=== PATIENT | male | born 1960 | race Caucasian/White ===

== ENCOUNTER 2017-04-17 13:55 | Inpatient (IN) ==
[2017-04-17 15:03] VITALS: BMI 25.3
--- OUTSIDE RECORDS SUMMARY | 2017-04-17 15:07 | External Medical Summary ---
:1960 Author Organization [facility]. Summary purpose CCDA Sent to [facility] Chief Complaint and Reason for Visit No authorized Reason for Visit (Admitting Diagnosis) is available for this visit. Problem list Condition Status Certainty Chronicity Onset .Abdominal pain Resolved Encounters The following conditions tracked for encounter diagnoses were recorded for this visit: Finding or Diagnosis Status Certainty Chronicity Onset .Abdominal pain Resolved Medications No medications recorded for this patient visit Allergies, adverse reactions, alerts Allergen Category Ingredient Status Reaction Severity Onset ciprofloxacin Drug ciprofloxacin Active No Known Food No Known Food No Known Food Active Allergy Allergy Allergy Immunizations No immunizations recorded for this patient visit Relevant diagnostic tests and/or laboratory data RESULTS 12-14-036820:02:58 Discharge Summary improving, HOme on protonix, prn Bells, f/u next week CBC [id number]:40:00 Result Normal Range Units WBC H 14.71 5.8-10.8 x103/mm3 Neutrophil % H 77.0 50-70 % Lymph % L 12.2 20-50 % [place] % H 9.9 1.0-9.0 % Eosinophil % 0.5 0-4 % Basophil % 0.4 0-2 % Neutrophil # H 11.33 3.0-7.0 x103/mm3 Lymph # 1.79 1.0-4.0 x103/mm3 [place] # H 1.46 0.0-0.8 x103/mm3 Eosinophil # 0.07 0-0.5 x103/mm3 Basophil # 0.06 0-0.2 x103/mm3 RBC 5.63 4.60-6.20 x103/mm3 HGB 16.6 14.0-18.0 g/dl HCT 48.7 42.0-52.0 % MCV 86.5 80-94 FL MCH 29.5 27.0-31.0 pg MCHC 34.1 32.0-36.0 g/dl RDW 13.5 12-15 % Platelet 303 150-400 x103/mm3 MPV H 10.3 6.0-10.0 FL Chemistry Group [id number] Result Normal Range Units Sodium 141 134-145 mmol/L Potassium L 3.4 3.6-5.0 mmol/L Chloride L 95 98-107 mmol/L CO2 30 22-30 mmol/L Glucose H 120 75-110 mg/dl BUN 17 9-20 mg/dl Creatinine .86 0.8-1.7 mg/dl Total Protein 7.9 6.3-8.2 g/dl Albumin 4.3 3.5-5.0 g/dl Calcium 9.1 8.4-10.2 mg/dl Alk Phos 58 38-126 U/L AST 33 14-36 U/L ALT 38 11-66 U/L T Bili 1.2 0.2-1.3 mg/dl A/G Ratio 1.2 Ratio Special Chemistry Group [id number] Result Normal Range Units Troponin I < 0.06 ng/ml NEGATIVE - 0.06-0.30 ng/ml INCONCLUSIVE - 0.31-0.64 ng/ml; Suggest Repeating in 2-4 hours POSITIVE - >0.64 ng/ml; Probable AMI [id number]:15:00 Result Normal Range Units Troponin I < 0.06 ng/ml NEGATIVE - 0.06-0.30 ng/ml INCONCLUSIVE - 0.31-0.64 ng/ml; Suggest Repeating in 2-4 hours POSITIVE - >0.64 ng/ml; Probable AMI [id number]:40:00 Result Normal Range Units Troponin I < 0.06 ng/ml NEGATIVE - 0.06-0.30 ng/ml INCONCLUSIVE - 0.31-0.64 ng/ml; Suggest Repeating in 2-4 hours POSITIVE - >0.64 ng/ml; Probable AMI History of procedures Procedure Code Code Type Description Date Performed Performing Physician 97721 CPT-4 EMERGENCY DEPT VISIT 09-14-2015 UMANG OCONNOR 49160 CPT-4 THER/PROPH/DIAG INJ, IV 09-14-2015 UMANG OCONNOR PUSH J2780 CPT-4 RANITIDINE HCL 25 MQ 09-15-2015 ALICIA ROWAN INJ J7050 CPT-4 NS SOLUTION 250 CC 09-15-2015 ALICIA ROWAN INFUSION J2780 CPT-4 RANITIDINE HCL 25 MQ 09-15-2015 ALICIA MELENDREZ [place] INJ J7050 CPT-4 NS SOLUTION 250 CC 09-15-2015 ALICIA MELENDREZ [place] INFUSION J2270 CPT-4 MORPHINE 09-15-2015 ALICIA MELENDREZ [place] J2270 CPT-4 MORPHINE 09-15-2015 ALICIA BASSLODante [place] J2270 CPT-4 MORPHINE 09-15-2015 ALICIA MELENDREZ [place] J2270 CPT-4 MORPHINE 09-15-2015 ALICIA MELENDREZ [place] 39050 CPT-4 ASSAY OF TROPONIN, 09-14-2015 UMANG OCONNOR QUANT 91594 CPT-4 COMPLETE CBC, 09-14-2015 UMANG OCONNOR AUTOMATED 61954 CPT-4 COMPREHEN METABOLIC 09-14-2015 UMANG OCONNOR PANEL 28707 CPT-4 CHEST X-RAY 09-14-2015 UMANG OCONNOR 97882 CPT-4 ELECTROCARDIOGRAM, 09-14-2015 UMANG OCONNOR TRACING 52041 CPT-4 ELECTROCARDIOGRAM, 09-14-2015 UMANG OCONNOR TRACING 78984 CPT-4 ASSAY OF TROPONIN, 09-14-2015 UMANG OCONNOR QUANT 48247 CPT-4 ASSAY OF TROPONIN, 09-15-2015 UMANG OCONNOR QUANT 90884 CPT-4 ELECTROCARDIOGRAM, 09-15-2015 UMANG OCONNOR TRACING 09230 CPT-4 OBSERVATION CARE 09-14-2015 UMANG OCONNOR 30548 CPT-4 OBSERVATION CARE 09-15-2015 UMANG OCONNOR 91447 CPT-4 THER/PROPH/DIAG IV INF, 09-14-2015 UMANG OCONNOR INIT 56113 CPT-4 THER/PROPH/DIAG IV INF 09-15-2015 UMANG OCONNOR ADDON 22486 CPT-4 TX/PRO/DX INJ NEW DRUG 09-14-2015 UMANG VILLANUEVAON 55667 CPT-4 TX/PRO/DX INJ NEW DRUG 09-14-2015 UMANG CLAYTONON 17376 CPT-4 TX/PRO/DX INJ NEW DRUG 09-14-2015 UMANG VILLANUEVAON 51336 CPT-4 TX/PRO/DX INJ NEW DRUG 09-14-2015 UMANG VILLANUEVAON 01673 CPT-4 TX/PRO/DX INJ NEW DRUG 09-14-2015 UMANG VILLANUEVAON 52176 CPT-4 TX/PRO/DX INJ NEW DRUG 09-15-2015 UMANG RATZLAFF TELEHEALTH COORDINATOR 63985 CPT-4 TX/PRO/DX INJ NEW DRUG 09-15-2015 UMANG RATZLAFF TELEHEALTH COORDINATOR 31101 CPT-4 TX/PRO/DX INJ NEW DRUG 09-15-2015 UMANG RATZLAFF TELEHEALTH COORDINATOR 55049 CPT-4 TX/PRO/DX INJ NEW DRUG 09-15-2015 UMANG CASASZLKELLEE TELEHEALTH COORDINATOR 09026 CPT-4 HYDRATE IV INFUSION, 09-14-2015 UMANG RATZLAFF ADD-ON 79258 CPT-4 HYDRATE IV INFUSION, 09-15-2015 UMANG RATZLAFF ADD-ON Functional status Cognitive Status Finding Observation Time Level of Consciousne Alert :28 Oriented to Person Yes :[address] Yes :28 Oriented to Time Yes :28 Eyes - VELMA Yes [id number]:30 Vital signs Type Value Date Respirations 24 :09 Pulse 88 :09 O2 Saturation 94% [id number]:09 Systolic Blood Press 136mm/HG :09 Diastolic Blood Pres 94mm/HG :09 Temperature (Fahr) 98.2Degrees :09 Height 73in :00 Weight 191.8LB :00 Social history Type Value Smoking Status FORMER SMOKER Treatment Plan No treatment plan text is available for this visit. Hospital discharge instructions Diagnosis abdominal pain Diet no restrictions Activity Level no restrictions Personal Items Retur medications returned Follow up with JDR Appointment Date and in 1 week Other Instructions return or call for return, increased, or new symptoms.
--- OUTSIDE RECORDS SUMMARY | 2017-04-17 15:07 | External Medical Summary ---
:1960 Author Organization [facility]. Summary purpose CCDA Sent to [facility] Chief Complaint and Reason for Visit Admit Diagnosis 1 SOA, COUGHING UP BLOODY MUCOUS Problem list No authorized problems tracked for continuity of care are available for this visit. Encounters No authorized problems tracked for encounter diagnoses are available for this visit. Medications No medications recorded for this patient visit Allergies, adverse reactions, alerts Allergen Category Ingredient Status Reaction Severity Onset ciprofloxacin Drug ciprofloxacin Active No Known Food No Known Food No Known Food Active Allergy Allergy Allergy Immunizations No immunizations recorded for this patient visit Relevant diagnostic tests and/or laboratory data RESULTS CBC [id number]:25:00 Result Normal Range Units WBC HC 15.94 5.8-10.8 x103/mm3 Result Amended on 2017-02-13 at 12:56:35. Previous status was FR. REPORTED TO @12:55 BY MKR Neutrophil % H 79.4 50-70 % Result Amended on 2017-02-13 at 12:56:35. Previous status was FR. Lymph % L 9.8 20-50 % Result Amended on 2017-02-13 at 12:56:35. Previous status was FR. [place] % H 9.8 1.0-9.0 % Result Amended on 2017-02-13 at 12:56:35. Previous status was FR. Eosinophil % 0.7 0-4 % Result Amended on 2017-02-13 at 12:56:35. Previous status was FR. Basophil % 0.3 0-2 % Result Amended on 2017-02-13 at 12:56:35. Previous status was FR. Neutrophil # H 12.65 3.0-7.0 x103/mm3 Result Amended on 2017-02-13 at 12:56:35. Previous status was FR. Lymph # 1.57 1.0-4.0 x103/mm3 Result Amended on 2017-02-13 at 12:56:35. Previous status was FR. [place] # H 1.57 0.0-0.8 x103/mm3 Result Amended on 2017-02-13 at 12:56:35. Previous status was FR. Eosinophil # 0.11 0-0.5 x103/mm3 Result Amended on 2017-02-13 at 12:56:35. Previous status was FR. Basophil # 0.04 0-0.2 x103/mm3 Result Amended on 2017-02-13 at 12:56:35. Previous status was FR. RBC 5.27 4.60-6.20 x103/mm3 Result Amended on 2017-02-13 at 12:56:35. Previous status was FR. HGB 14.9 14.0-18.0 g/dl Result Amended on 2017-02-13 at 12:56:35. Previous status was FR. HCT 45.8 42.0-52.0 % Result Amended on 2017-02-13 at 12:56:35. Previous status was FR. MCV 86.9 80-94 FL Result Amended on 2017-02-13 at 12:56:35. Previous status was FR. MCH 28.3 27.0-31.0 pg Result Amended on 2017-02-13 at 12:56:35. Previous status was FR. MCHC 32.5 32.0-36.0 g/dl Result Amended on 2017-02-13 at 12:56:35. Previous status was FR. RDW 14.2 12-15 % Result Amended on 2017-02-13 at 12:56:35. Previous status was FR. Platelet 271 150-400 x103/mm3 Result Amended on 2017-02-13 at 12:56:35. Previous status was FR. MPV H 10.3 6.0-10.0 FL Result Amended on 2017-02-13 at 12:56:35. Previous status was FR. Chemistry Group [id number]:00 Result Normal Range Units Sodium 141 134-145 mmol/L Potassium 4.3 3.6-5.0 mmol/L Chloride 101 98-107 mmol/L CO2 30 22-30 mmol/L Glucose 98 75-110 mg/dl BUN 11 9-20 mg/dl Creatinine .80 0.8-1.7 mg/dl eGFR 100 ml/min. Calcium 9.6 8.4-10.2 mg/dl History of procedures No procedures recorded for this patient visit. Functional status Cognitive Status Finding Observation Time Level of Consciousne Alert :50 Oriented to Person Yes :[address] Yes :50 Oriented to Time Yes :50 Vital signs Type Value Date Respirations 18 :00 Pulse 88 :00 O2 Saturation 95% :00 Systolic Blood Press 161mm/HG :00 Diastolic Blood Pres 121mm/HG :00 Temperature (Fahr) 98.7Degrees :51 Social history Type Value Smoking Status FORMER SMOKER Treatment Plan No treatment plan text is available for this visit. Hospital discharge instructions No discharge instruction text is available for this visit.
[2017-04-17] MEDS ORDERED: SALINE FLUSH 10ml SYRINGE ONE (16:07)
[2017-04-17] MEDS ORDERED: NS 100 ML ONE (16:07)
[2017-04-17] MEDS ORDERED: IOHEXOL 300mg/ml 100ml INJECTION ONE (16:07)
[2017-04-17] MEDS: PANTOPRAZOLE 40 MG INJECTION IVP SCH (16:08)
[2017-04-17] MEDS: 1/2 NS with KCL 20mEq 1,000 ML IV SCH (16:10)
[2017-04-17] MEDS: PIPERACILLIN/TAZOBACTAM 3.375 GM in NS 100 ML IV SCH ×2 (16:13→21:54)
[2017-04-17] MEDS: HYDROMORPHONE 2 MG/ML INJECTION IVP PRN ×2 (16:23→22:59)
--- NOTE | 2017-04-17 16:45 | History & Physical Report ---
History of Present Illness Date: 04/17/17 Chief complaint: Abdominal pain HPI: 57 y/o male made direct admit to [facility] secondary to continued ab pain and leukocytosis. Patient report onset of ab pain (LLQ) on Thursday 04/12. Crampy, bloating sensation, worse with positional changes. Nausea , but no spontaneous vomiting - would drink water and then stick finger down throat to vomit so he could get relief. No stool output. Not passing much flatus. Use old Magnolia and Methadone he had at home to help his pain, but this only provided temporary relief. Would get relief in pain from sitting in a warm tub. Oral drive decreased; not hungry and only eating small amounts of soups/ liquids. His dog also became very ill and lethargic-when took dog into vet, his dog needed to be put down. This has been very traumatic for patient. Was seen in local ED yesterday. WBC elevated to 13.2. Blood in urine. Placed in OBS and stared on fluid, Bactrim and pain medications. Pain continued overnight. WBC with increase this am to 16.3. Not able to do CT there this weekend and transfer to [facility] for further care and evaluation. Review of Systems Comprehensive ROS: completed and no additional positive findings except those as stated - Constitutional Constitutional: Present: anorexia - EENMT Mouth/Throat: Present: scratchy throat (From vomiting) - Cardiovascular Cardiovascular: Absent: chest pain, palpitations - Gastrointestinal Gastrointestinal: Present: as per HPI, constipation, nausea. Absent: diarrhea, hematochezia - Genitourinary Genitourinary: Absent: difficulty urinating, urinary frequency, urinary urgency - Musculoskeletal Musculoskeletal: Present: myalgias - Integumentary/Breasts Integumentary: Absent: pruritus, rash - Neurological Neurological: Absent: focal weakness, loss of vision, memory loss - Psychiatric Psychiatric: Present: other (Very emotionally distraught at loss of his dog) - Allergic/Immunologic Allergic/Immunologic: Absent: tongue swelling, throat swelling, itchy eyes PFSH Patient Stated Medical History Cataracts Yes: LEFT EYE Angina Yes Hypertension Yes Chronic Obstructive Pulmonary Yes: EMPHYSEMA Disease (COPD) Pneumonia Yes Other GI Yes: GASTRITIS Hx Kidney Stones Yes Other Behavioral Health Yes: [facility] - Social History Smoking status: Former smoker Substance use type: marijuana Housing: house Household members: none (Just lost dog) Social history: Dr Handy his PCP. Medications Home Medications Medication Instructions Recorded Confirmed Type Ipratropium/Albuterol Sulfate 2 puff INH QID #0 05/18/10 History (Combivent Inhaler) hydroCHLOROthiazide 25 mg PO DAILY #0 05/18/10 History [Hydrochlorothiazide] Budesonide/Formoterol Fumarate 60 puff ORAL INH DAILY #0 03/19/13 History (Symbicort 80/4.5) Chlorzoxazone [Parafon Forte] 500 mg PO BID #0 03/19/13 History Celecoxib 100 mg PO DAILY #0 10/10/14 History Dicyclomine HCl 10 mg PO Q6H PRN #0 10/10/14 History Montelukast Sodium 10 mg PO HS #0 tab 10/10/14 History Tramadol HCl 50 mg PO Q6H PRN #0 tab 10/10/14 History Allergies Allergy/AdvReac Type Severity Reaction Status Date / Time ciprofloxacin Allergy Mild ITCH Verified 10/10/14 14:56 ciprofloxacin HCl Allergy Mild ITCH Uncoded 10/10/14 14:56 Exam Vital Signs: Temperature 97.6 F 04/17/17 15:01 Pulse Rate 82 04/17/17 15:01 Respiratory Rate 20 04/17/17 15:01 Blood Pressure 147/85 H 04/17/17 15:01 Pulse Oximetry 93 04/17/17 15:01 Height/Weight/BMI: Height 1.85 m Weight 87.2 kg Body Mass Index 25.3 - Constitutional Present: mild distress, well nourished, well developed, cooperative - Routine HEENT Exam Head: Present: normocephalic, atraumatic Eye: Present: EOMI, PERRL ENT: Present: mucous membranes dry - Routine Neck Exam Present: supple, trachea midline - Routine Respiratory Exam Present: decreased breath sounds. Absent: respiratory distress, rhonchi, wheezes, crackles - Routine Cardiovascular Exam Present: RRR, no murmur - Routine Abdominal Exam Present: soft, tenderness (Mild diffuse ). Absent: normoactive bowel sounds ( Decreased ), non distended, guarding, firm, rigid - Routine Extremities Exam Present: no edema, pulses intact. Absent: cyanosis, clubbing - Routine Skin Exam Present: intact, dry, warm - Routine Neurological Exam Present: alert, oriented X3, CN II-XII intact, moving all extremities, vision grossly intact, hearing grossly intact. Absent: motor deficit - Routine Psychiatric Exam Present: normal affect, normal thought process, cooperative. Absent: anxious, agitated Results - Labs CBC & Chem 7: 04/17/17 15:18 04/17/17 15:18 Microbiology Results: Microbiology 04/17/17 15:26 Peripheral/Iv Start Blood Culture - Preliminary Culture Initiated - Results Pending 04/17/17 15:18 Peripheral/Iv Start Blood Culture - Preliminary Culture Initiated - Results Pending Assessment and Plan (1) Abdominal pain Current visit: Yes Status: Acute (2) Leukocytosis Current visit: Yes Status: Acute DVT Prophylaxis: SCD's GI Prophylaxis: Protonix Resuscitation Status: Full Code Assessment and Plan: Assessment Abdominal pain Uncertain etiology. Need to exclude acute diverticulitis. Possible kidney stone. With patient's marijuana use, pain could be secondary to chronic use. Leukocytosis Hematuria - exclude kidney stones Constipation Hypokalemia (POA) - also present at prior facility. COPD GERD Hx Kidney stones - follows with Dr JORGE. Hx pulmonary nodule Hx marijuana use Plan Inpatient admission to [facility] for further evaluation and treatment of his abdominal pain and leukocytosis. Anticipate greater than 2 midnights of care needed. Patient not meeting sepsis criterial, nor do I see evidence of acute surgical abdomen. Start Zosyn 3.375 grams IV q 6 hours for antimicrobial coverage of GI pathogens. Obtain CT scan of ab/pelvis with and without IV contrast to help rule of kidney stone and diverticulitis. IVF of 1/2NS with 20mEq KCL at 125cc/hr for hydration. Clear liquid diet. Zofran prn nausea. Dilaudid prn pain. Neb Treatments of DuoNeb QID and q4 prn along with budesonide 0.5mg BID in light of his COPD. IV Protonix daily secondary to GERD. SCD for DVT prevention. Home medications are in process of being reconciled. Monitor lab. Full code as per his requests. Care to return to Dr Handy at time of discharge from [facility]. Hospital Course Summary Disclaimer: The visit summary below is not to be considered part of the above Progress Note. Hospital Course: 04/17/17 Admission Assessment Abdominal pain Uncertain etiology. Need to exclude acute diverticulitis. Possible kidney stone. With patient's marijuana use, pain could be secondary to chronic use. Leukocytosis Hematuria - exclude kidney stones Constipation Hypokalemia (POA) - also present at prior facility. COPD GERD Hx Kidney stones - follows with Dr JORGE. Hx pulmonary nodule Hx marijuana use Plan Inpatient admission to [facility] for further evaluation and treatment of his abdominal pain and leukocytosis. Anticipate greater than 2 midnights of care needed. Patient not meeting sepsis criterial, nor do I see evidence of acute surgical abdomen. Start Zosyn 3.375 grams IV q 6 hours for antimicrobial coverage of GI pathogens. Obtain CT scan of ab/pelvis with and without IV contrast to help rule of kidney stone and diverticulitis. IVF of 1/2NS with 20mEq KCL at 125cc/hr for hydration. Clear liquid diet. Zofran prn nausea. Dilaudid prn pain. Neb Treatments of DuoNeb QID and q4 prn along with budesonide 0.5mg BID in light of his COPD. IV Protonix daily secondary to GERD. SCD for DVT prevention. Home medications are in process of being reconciled. Monitor lab. Full code as per his requests. Care to return to Dr Handy at time of discharge from [facility].
[2017-04-17] MEDS: ALBUTEROL/IPRATROPIUM 2.5mg-0.5mg/3ml NEB AEROSOL SCH (17:01)
[2017-04-17] MEDS: ONDANSETRON 4 MG/2 ML INJECTION IVP PRN (19:53)
[2017-04-17] MEDS ORDERED: HYDRALAZINE 20 MG/ML INJECTION IVP ONE (20:20)
[2017-04-17] MEDS: BUDESONIDE INH.SOLN 0.5mg/2ml NEB AEROSOL SCH (20:36)
[2017-04-17] MEDS: ALBUTEROL/IPRATROPIUM 2.5mg-0.5mg/3ml NEB AEROSOL PRN (20:37)
[2017-04-17] MEDS ORDERED: POLYETHYL GLYCOL 3350 17gm PACKET PO PRN (23:48)
[2017-04-18] MEDS: PIPERACILLIN/TAZOBACTAM 3.375 GM in NS 100 ML IV SCH ×4 (02:53→21:56)
[2017-04-18] MEDS: 1/2 NS with KCL 20mEq 1,000 ML IV SCH ×2 (02:53→14:27)
[2017-04-18] MEDS: ALBUTEROL/IPRATROPIUM 2.5mg-0.5mg/3ml NEB AEROSOL SCH ×4 (06:55→20:13)
[2017-04-18] MEDS: BUDESONIDE INH.SOLN 0.5mg/2ml NEB AEROSOL SCH (06:56)
[2017-04-18] MEDS: PANTOPRAZOLE 40 MG INJECTION IVP SCH (08:54)
--- NOTE | 2017-04-18 09:22 | CT Scan Report ---
EXAM: CT abdomen pelvis wo/w con DATE: 04/17/2017 4:01 PM ENCOUNTER: Initial INDICATION: ? Kidney stone - Also, LLQ pain possible diverticulitis COMPARISON: 10/10/2014, 03/19/2013 TECHNIQUE: CT of the abdomen and pelvis was obtained after administration of 10 mL Omnipaque 300 intravenous contrast. Axial, coronal and sagittal reformatted images were performed. The current CT scan was performed using radiation dose-reduction techniques. FINDINGS: Evaluation limited by suboptimal contrast related to small contrast bolus. Lower Chest: Partially visualized bilateral pulmonary nodules and emphysematous changes, largest within the right lower lobe measuring up to 13 mm, similar to mildly enlarged from the previous examination. The heart is normal in size without pericardial effusion. Abdomen: No intraperitoneal free air. No intra-abdominal free fluid or fluid collections. No lymphadenopathy. Liver: The liver appears normal without focal masses allowing for suboptimal contrast. Gallbladder and biliary: The gallbladder appears normal. No biliary ductal dilatation. Spleen: The spleen appears normal. Pancreas: The pancreas demonstrates homogeneous attenuation. Adrenal glands: The adrenal glands are normal in size and attenuation. Kidneys/ureters: Mild to moderate left hydroureteronephrosis and perinephric stranding secondary to an 8 mm obstructing stone within the distal left ureter. Additional nonobstructing bilateral nephrolithiasis also noted. The kidneys appear otherwise grossly normal allowing for suboptimal contrast. The right ureter is normal in course and caliber. GI tract: The stomach, small bowel, and colon appear grossly normal. The appendix is normal. Vascular structures: The aorta is normal in course and caliber with aortoiliac atherosclerotic calcifications noted. The mesenteric arterial and venous structures appear patent. Pelvis: No pelvic free fluid. No pelvic lymphadenopathy. Bladder: The bladder appears normal. Genital system: The prostate and seminal vesicles appear grossly normal. Skeletal structures and soft tissues: Postoperative changes of the bilateral proximal femurs. Degenerative spondylosis of the visualized spine. Old left inferior rib fractures. IMPRESSION: 1. Mild to moderate left hydroureteronephrosis and left perinephric stranding secondary to an 8 mm obstructing stone within the distal left ureter. 2. Additional nonobstructing bilateral nephrolithiasis. 3. Bilateral lower lobe pulmonary nodules partially visualized, similar to mildly increased in size from a prior CT in September 2014. Dedicated contrast-enhanced chest CT recommended for further evaluation. The above report concurs with the preliminary report provided by [employer] at 5:42 PM. .
[2017-04-18] MEDS: HYDROMORPHONE 2 MG/ML INJECTION IVP PRN ×3 (09:40→22:00)
--- NOTE | 2017-04-18 13:11 | Urology Consult Note ---
Urology HPI - Data of Consult Consult date: 04/18/17 Requesting Physician: Glenny Arguello MD Primary Care Provider: Santos Mclean MD - Consult Narrative Reason for consult: Left ureteral stone History of present illness: 57M who began c/o severe L flank pain + N/V last tuesday. He was admitted to [facility] last night for possible diverticulitis. CT done showed an 8mm L distal ureteral stone + hydronephrosis. No fever or chills. Creat=1. Of note, patient has a h/o ESWL with Dr JORGE in the past. Review of Systems - Constitutional Constitutional: Present: as per HPI - EENT Eyes: Absent: blurry vision, change in vision - Cardiovascular Cardiovascular: Absent: chest pain, palpitations - Respiratory Respiratory: Absent: cough, dyspnea - Gastrointestinal Gastrointestinal: Present: abdominal pain - Genitourinary Genitourinary: Present: flank pain, hematuria - Musculoskeletal Musculoskeletal: Absent: abnormal gait - Neurological Neurological: Absent: confusion, convulsions - Psychiatric Psychiatric: Absent: auditory hallucinations, behavioral changes [facility] Patient Stated Medical History Cataracts Yes: LEFT EYE Angina Yes Hypertension Yes Chronic Obstructive Pulmonary Yes: EMPHYSEMA Disease (COPD) Pneumonia Yes Other GI Yes: GASTRITIS Hx Kidney Stones Yes Other Behavioral Health Yes: [facility] Surgical History: ESWL by Ritesh JORGE - Social History Smoking status: Former smoker Medications Home Medications Medication Instructions Recorded Confirmed Type Ipratropium/Albuterol [Combivent 2 puff INH Q4H PRN #0 05/18/10 04/17/17 History Respimat Inhaler] hydroCHLOROthiazide 25 mg PO DAILY #0 05/18/10 04/17/17 History [Hydrochlorothiazide] Chlorzoxazone [Parafon Forte] 500 mg PO BID #0 03/19/13 History Celecoxib 100 mg PO DAILY #0 10/10/14 04/17/17 History Dicyclomine HCl 10 mg PO Q6H PRN #0 10/10/14 04/17/17 History Montelukast Sodium 10 mg PO HS #0 tab 10/10/14 04/17/17 History Tramadol HCl 50 mg PO Q6H PRN #0 tab 10/10/14 04/17/17 History Albuterol Neb (0.083%) [Proventil 2.5 mg AEROSOL QID PRN 04/17/17 04/17/17 History Neb (0.083%)] Albuterol Sulfate [Proair Hfa] 1 - 2 puff INH Q4H PRN 04/17/17 04/17/17 History Budesonide/Formoterol 80/4.5 2 puff INH BID 04/17/17 04/17/17 History [Symbicort Inhaler] Diclofenac [Voltaren] 1 applic TOP BID 04/17/17 04/17/17 History Docusate Sodium [Colace] 1 cap PO BID 04/17/17 04/17/17 History Fluticasone Hfa [Flovent Hfa 220 2 puff INH BID PRN 04/17/17 04/17/17 History mcg] Hydrocodone/APAP 5/325 [[place] 1 tab PO Q4H PRN 04/17/17 04/17/17 History 5/325] Ibuprofen 800 mg PO Q8H PRN 04/17/17 04/17/17 History Milk of Magnesia [Mom] 30 ml PO DAILY PRN 04/17/17 04/17/17 History Pantoprazole Tab [Protonix Tab] 1 tab PO ACB 04/17/17 04/17/17 History Simvastatin 20 mg PO HS 04/17/17 04/17/17 History Allergies Allergy/AdvReac Type Severity Reaction Status Date / Time ciprofloxacin Allergy Mild ITCH Verified 04/17/17 16:57 ciprofloxacin HCl Allergy Mild ITCH Uncoded 04/17/17 16:57 Urology Results - Labs CBC & Chem 7: 04/18/17 03:45 04/18/17 03:45 Labs: Short CBC 04/17/17 04/18/17 Range/Units 15:18 03:45 WBC 12.9 H 11.4 H (4.5-11.0) T/MM3 Hgb 14.6 13.5 (13.5-17.5) GM/DL Hct 44.2 40.9 L (41-53) % Plt Count 274 246 (130-400) T/MM3 BMP 04/17/17 04/18/17 15:18 03:45 Sodium 144 140 Potassium 3.4 L 3.1 L Chloride 98 100 Carbon Dioxide 32 H 31 H BUN 11.0 10.0 Creatinine 0.8 1.0 D Glucose 98 86 Calcium 9.5 9.0 Liver Function 04/17/17 Range/Units 15:18 Total Bilirubin 1.20 (0.20-1.30) MG/DL AST 31 (17-59) U/L ALT 30 (21-72) U/L Alkaline Phosphatase 82 (38-126) U/L Albumin 4.5 (3.5-5.0) G/DL Urine 04/17/17 Range/Units 14:15 Urine Color Yellow (YELLOW) Urine Clarity Cloudy Urine pH 7.0 (5.0-8.0) Ur Specific [place] 1.010 L (1.015-1.025) Urine Protein Negative (NEGATIVE) Urine Glucose (UA) Negative (NEGATIVE) Urology Exam Vital signs: Temperature 98.3 F 04/18/17 12:25 Pulse Rate 79 04/18/17 12:25 Respiratory Rate 14 04/18/17 12:25 Blood Pressure 146/89 H 04/18/17 12:25 Pulse Oximetry 96 04/18/17 12:25 - Constitutional no acute distress - HEENT Exam Head: Present: normocephalic Eye: Present: EOMI - Chest/Breast/Axilla Exam Chest wall: Absent: tenderness - Respiratory Exam Absent: accessory muscle use, dyspnea, respiratory distress - Cardiovascular Exam Present: RRR - Abdominal/Groin Exam Present: soft, tenderness (llq) - Exam Penile: Present: circumcision. Absent: swelling, erythema Scrotal: Absent: swelling, tenderness - Psychiatric Exam Present: normal affect, normal thought process Assessment and Plan 8mm L ureteral stone Plan: d/w pt management options including MET vs URS. I discussed the risks of URS including infection, bleeding and ureteral injury . Patient elects for URS Will plan for L URS + LL + Stent on tuesday Thank you for the consult. Call for questions/concerns Sepsis Assessment - Evaluation Sepsis screening result: No Definite Risk
--- NOTE | 2017-04-18 14:14 | Cardiology Consult Note ---
History of Present Illness Consult date: 04/18/17 <Мария Curry - 04/18/17 14:25> Requesting physician: Glenny Arguello <Мария Curry - 04/18/17 14:25> Consult reason: pre-op evaluation <Мария Curry - 04/18/17 14:25> Chief complaint: abdominal pain <Мария Curry - 04/18/17 14:25> History of present illness: Fly is a 57 year old male who was admitted to [facility] [place] another hospital secondary to continued ab pain and leukocytosis. He reports onset of ab pain (LLQ) on Thursday 04/12. Crampy, bloating sensation, worse with positional changes. Nausea, but no spontaneous vomiting - would drink water and then stick finger down throat to vomit so he could get relief. No stool output. Not passing much flatus. Used old [place] and Methadone he had at home to help his pain, but this only provided temporary relief. Would get relief in pain from sitting in a warm tub. Oral drive decreased; not hungry and only eating small amounts of soups/liquids. His dog also became very ill and lethargic-when took dog into vet, his dog needed to be put down. This has been very traumatic for patient. He is seen in his room on Surgical. He is very anxious about kidney stone retrieval procedure and states concern about his heart because his father had Bypass X4 before the age of 60 and of CHF. Patient states he has a history of COPD and when he has chest pain he always considered it to be his lung condition. <Мария Curry - 04/18/17 14:25> Review of Systems - Constitutional Constitutional: Absent: chills, fatigue, fever(s) <Мария Curry - 04/18/17 14:25> - EENMT Eyes: Absent: change in vision <Мария Curry 04/18/17 14:25> Balance: Absent: vertigo <Мария Curry - 04/18/17 14:25> Mouth/Throat: Absent: sore throat <Мария Curry 04/18/17 14:25> - Cardiovascular Cardiovascular: Present: chest pain (at times), dyspnea on exertion. Absent: palpitations, syncope <Мария Curry 04/18/17 14:25> Rhythm: Present: regular rhythm <AntoinetteМария suarez 04/18/17 14:25> Vascular: Absent: pedal edema <AntoinetteМария suarez 04/18/17 14:25> - Respiratory Respiratory: Present: as per HPI, cough (COPD), dyspnea, dyspnea on exertion, chest congestion (COPD) <Antoinette,Amy 04/18/17 14:25> - Gastrointestinal Gastrointestinal: Present: as per HPI, abdominal pain, nausea, vomiting < AntoinetteМария suarez 04/18/17 14:25> - Genitourinary Genitourinary: Present: as per HPI, flank pain, hematuria <Antoinette,Amy 14:25> - Neurological Neurological: Absent: dizziness <AntoinetteМария suarez 04/18/17 14:25> - Endocrine Endocrine: Absent: palpitations <[facility] Hospital[facility] 04/18/17 14:25> [facility] Patient Stated Medical History Cerebrovascular Accident No Paralysis No Seizures No Syncope No Cataracts Yes: LEFT EYE Angina No Cardiac Arrhythmia No Congestive Heart Failure No Coronary Artery Disease No Heart Murmur No Hypertension Yes Hypotension No Myocardial Infarction No Rheumatic Fever No Valvular Heart Disease No Other Cardiology No Asthma No Bronchitis No Chronic Obstructive Pulmonary Yes Disease (COPD) Pneumonia No Pulmonary Edema No Pulmonary Embolism No Sleep Apnea No Tuberculosis No Other Respiratory No Diabetes Mellitus Type 1 No Diabetes Mellitus Type 2 No Cirrhosis No Gastroesophageal Reflux No Disease Gastrointestinal Bleeding No Hepatitis No Hiatal Hernia No Obstructive Bowel No Ulcer No Other GI No Hx Kidney Stones Yes Osteoarthritis No Other Musculoskeletal No Anesthesia Reactions No Blood Transfusions No Chemotherapy No Malignant Hyperthermia No Other No Depression No Other Behavioral Health Yes[facility] Now No <Delroy Person - 04/22/17 13:55> Patient Stated Medical History Cataracts Yes: LEFT EYE Angina Yes Hypertension Yes Chronic Obstructive Pulmonary Yes: EMPHYSEMA Disease (COPD) Pneumonia Yes Other GI Yes: GASTRITIS Hx Kidney Stones Yes Other Behavioral Health Yes: [facility] <Мария Curry 04/18/17 14:25> Surgical History: ESWL by Ritesh JORGE. Left shoulder replacement. pins bilateral hip fractures at age 12 <Мария Curry 04/18/17 14:25> Family History: Father - CAD, CABG, CHF <Мария Curry 04/18/17 14:25> - Social History Smoking status: Former smoker <Мария Curry 04/18/17 14:25> Substance use type: marijuana <Мария Curry 04/18/17 14:25> Substance last used: days (ago) <Мария Curry 04/18/17 14:25> Alcohol intake frequency: does not drink <Мария Curry 04/18/17 14:25> Housing: house <Мария Curry 04/18/17 14:25> Household members: none <Мария Curry 04/18/17 14:25> Current occupational status: disabled <Мария Curry 04/18/17 14:25> Current residence: Apartment/Private Home <Мария Curry 04/18/17 14:25> Medications Home Medications Medication Instructions Recorded Confirmed Type Ipatropium/Albuterol [Combivent 2 puff INH Q4H PRN #0 05/18/10 04/17/17 History Respimat Inhaler] Chlorzoxazone [Parafon Forte] 500 mg PO BID #0 03/19/13 History Celecoxib 100 mg PO DAILY #0 10/10/14 04/17/17 History Dicyclomine HCl 10 mg PO Q6H PRN #0 10/10/14 04/17/17 History Montelukast Sodium 10 mg PO HS #0 tab 10/10/14 04/17/17 History Albuterol Sulfate [Proair Hfa] 1 - 2 puff INH Q4H PRN 04/17/17 04/17/17 History Budesonide/Formoterol 80/4.5 2 puff INH BID 04/17/17 04/17/17 History [Symbicort Inhaler] Diclofenac [Voltaren] 1 applic TOP BID 04/17/17 04/17/17 History Docusate Sodium [Colace] 1 cap PO BID 04/17/17 04/17/17 History Fluticasone HFA [Flovent Hfa 220 2 puff INH BID PRN 04/17/17 04/17/17 History mcg] Hydrocodone/APAP 5/325 [[place] 1 tab PO Q4H PRN 04/17/17 04/17/17 History 5/325] Ibuprofen 800 mg PO Q8H PRN 04/17/17 04/17/17 History Pantoprazole Tab [Protonix Tab] 1 tab PO ACB 04/17/17 04/17/17 History Simvastatin 20 mg PO HS 04/17/17 04/17/17 History <Delroy Person - 04/22/17 13:55> Allergies Allergy/AdvReac Type Severity Reaction Status Date / Time ciprofloxacin Allergy Mild ITCH Verified 04/17/17 16:57 ciprofloxacin HCl Allergy Mild ITCH Uncoded 04/17/17 16:57 <Delryo Person - 04/22/17 13:55> Exam Vital signs: Temperature 97.6 F 04/21/17 16:33 Pulse Rate 88 04/21/17 16:43 Respiratory Rate 18 04/21/17 16:33 Blood Pressure 126/79 04/21/17 16:33 Pulse Oximetry 96 04/21/17 16:33 <Delroy Person - 04/22/17 13:55> Temperature 98.3 F 04/18/17 12:25 Pulse Rate 79 04/18/17 12:25 Respiratory Rate 14 04/18/17 12:25 Blood Pressure 146/89 H 04/18/17 12:25 Pulse Oximetry 96 04/18/17 12:25 <Мария Curry - 04/18/17 14:25> - Constitutional mild distress, well nourished, cooperative <Мария Curry - 04/18/17 14:25> - Routine HEENT Exam Head: Present: normocephalic <Мария Curry - 04/18/17 14:25> ENT: Present: mucous membranes moist <Мария Curry - 04/18/17 14:25> - Routine Neck Exam Absent: JVD, carotid bruit <Мария Curry - 04/18/17 14:25> - Routine Chest/Breast/Axilla Exam Chest wall: Absent: tenderness <Мария Curry - 04/18/17 14:25> Results 04/20/17 04:08 04/21/17 07:38 <Delroy Person - 04/22/17 13:55> Intake and Output 04/21/17 04/22/17 04/22/17 22:59 06:59 14:59 Intake Total 408.333 / 408.333 Balance 408.333 / 408.333 Intake: IV 408.333 / 408.333 1/2 NS with KCL 20mEq 1, 408.333 / 408.333 000 ML @ 100 mls/hr IV . Q10H [facility] Rx#:[id number] <Ayah Personsein - 04/22/17 13:55> Cardiac Enzymes 04/17/17 Range/Units 15:18 AST 31 (17-59) U/L CBC 04/17/17 04/18/17 Range/Units 15:18 03:45 WBC 12.9 H 11.4 H (4.5-11.0) T/MM3 RBC 5.07 4.62 (4.50-5.90) M/MM3 Hgb 14.6 13.5 (13.5-17.5) GM/DL Hct 44.2 40.9 L (41-53) % Plt Count 274 246 (130-400) T/MM3 Neut # 10.7 H 8.1 H (1.8-7.7) T/MM3 Lymph # 1.3 1.7 (1-4.8) T/MM3 [place] # 0.8 1.2 H (0-0.8) T/MM3 Eos # 0.1 0.3 (0-0.5) T/MM3 Baso # 0.0 0.1 (0-0.2) T/MM3 Comprehensive Metabolic Panel 04/17/17 04/18/17 Range/Units 15:18 03:45 Sodium 144 140 (134-144) MEQ/L Potassium 3.4 L 3.1 L (3.6-5) MEQ/L Chloride 98 100 (98-107) MEQ/L Carbon Dioxide 32 H 31 H (22-30) MEQ/L BUN 11.0 10.0 (9-20) MG/DL Creatinine 0.8 1.0 D (0.8-1.5) MG/DL Glucose 98 86 (75-110) MG/DL Calcium 9.5 9.0 (8.4-10.2) MG/DL AST 31 (17-59) U/L ALT 30 (21-72) U/L Alkaline Phosphatase 82 (38-126) U/L Total Protein 8.0 (6.3-8.2) G/DL Albumin 4.5 (3.5-5.0) G/DL Intake and Output 04/17/17 04/18/17 04/18/17 22:59 06:59 14:59 Intake Total 203.333 / 321.324 6603.667 / 1066.667 650 / 650 Output Total 550 / 550 850 / 850 Balance -346.667 / -346.667 216.667 / 216.667 650 / 650 Intake: IV 203.333 / 881.745 3292.667 / 1066.667 650 / 650 1/2 NS with KCL 20mEq 1, 3.333 / 3.333 966.667 / 966.667 550 / 550 000 ML @ 100 mls/hr IV . Q10H [facility] Rx#:[id number] Zosyn 3.375 gm In Normal 200.000 / 200.000 100 / 100 100 / 100 Saline 100 ml @ 200 mls/ hr IV Q6H [facility] Rx#: [id number] Oral 0 / 0 0 / 0 Output: Urine 550 / 550 850 / 850 Other: Urine Appearance Clear Cloudy Urine Color Dark Lisa Tea Colored Tea Colored Urine Odor Normal Stool Characteristics Normal for Patient Stool Color Brown Stool Consistency Soft Formed Size of Bowel Movement Moderate # Voids 1 # Bowel Movements 1 Weight 192 lb 3.889 oz 192 lb 0.362 oz Patient Weight 04/19/17 06:59 Weight 192 lb 0.362 oz <Мария Curry - 04/18/17 14:25> - Imaging and Cardiology Echo: report reviewed <Мария Curry - 04/19/17 09:33> EKG results: image reviewed <Мария Curry - 04/19/17 09:33> Imaging & Cardiology Narrative: Date of Exam: 04/18/17 Type of Exam(s): US echo doppler complete DATE OF PROCEDURE April 18, [address] Justice Dumont This is a two-dimensional echo with spectral Doppler, color-flow and M-mode. It was obtained in a patient with abnormal EKG. Left atrial dimension is normal. Left ventricle end-diastolic dimension is normal. Left ventricle wall thickness is normal. LV systolic function is normal with ejection fraction of 55%. Right atrium is normal. Right ventricle is normal. Aortic root dimension is normal. Mitral, aortic, tricuspid, and pulmonary valves are morphologically normal with trace of mitral and trace of tricuspid regurgitation with normal estimated pulmonary artery systolic pressure of 15. There is no pericardial effusion. IMPRESSION 1. Essentially normal echo with trivial mitral and tricuspid regurgitation. <Мария Curry - 04/19/17 09:33> EKG interpretations - EKG EKG results cardiology: sinus rhythm <Мария Curry - 04/19/17 09:33> - [place], pacemaker, normal Myocardial infarction: inferior [place] (old age indeterminate) <Мария Curry - 04/19/17 09:33> Assessment and Plan - Attestation Attestation Narrative: 04/22/17 13:55 Recommendation After examining the patient I agree with the above assessment. I am involved in the formulation of the patient's plan of care. <Delroy Person - 04/22/17 13:55> - Assessment and Plan (1) Abnormal EKG Status: Acute (2) Renal lithiasis Status: Acute (3) Essential (primary) hypertension Status: Acute <Delroy Person - 04/22/17 13:55> (1) Abnormal EKG Status: Acute EKG is SR, ? IWMI. Has positive family history of heart disease. Plan treadmill stress test in the morning at 0800. (2) Renal lithiasis Status: Acute 8mm Left ureteral stone, with procedure planned for Tuesday. <Мария Curry - 04/19/17 09:30> Hospital Course Summary Disclaimer: The visit summary below is not to be considered part of the above Progress Note. <Delroy Person - 04/22/17 13:55> The visit summary below is not to be considered part of the above Progress Note. <Мария Curry - 04/18/17 14:25> Hospital Course: 04/17/17 Admission Assessment Abdominal pain Uncertain etiology. Need to exclude acute diverticulitis. Possible kidney stone. With patient's marijuana use, pain could be secondary to chronic use. Leukocytosis Hematuria - exclude kidney stones Constipation Hypokalemia (POA) - also present at prior facility. COPD GERD Hx Kidney stones - follows with Dr JORGE. Hx pulmonary nodule Hx marijuana use Plan Inpatient admission to [facility] for further evaluation and treatment of his abdominal pain and leukocytosis. Anticipate greater than 2 midnights of care needed. Patient not meeting sepsis criterial, nor do I see evidence of acute surgical abdomen. Start Zosyn 3.375 grams IV q 6 hours for antimicrobial coverage of GI pathogens. Obtain CT scan of ab/pelvis with and without IV contrast to help rule of kidney stone and diverticulitis. IVF of 1/2NS with 20mEq KCL at 125cc/hr for hydration. Clear liquid diet. Zofran prn nausea. Dilaudid prn pain. Neb Treatments of DuoNeb QID and q4 prn along with budesonide 0.5mg BID in light of his COPD. IV Protonix daily secondary to GERD. SCD for DVT prevention. Home medications are in process of being reconciled. Monitor lab. Full code as per his requests. Care to return to Dr Handy at time of discharge from [facility]. 04/18/17 Cardiology Abnormal EKG is SR, ? IWMI. Has positive family history of heart disease. Plan treadmill stress test in the morning at 0800. Renal lithiasis: 8mm Left ureteral stone, with procedure planned for Tuesday. Thank you for allowing us to participate in this patient's care <Мария Curry - 04/19/17 09:33> Sepsis Assessment - Evaluation Sepsis screening result: No Definite Risk <Мария Curry - 04/18/17 14:25>
[2017-04-18] MEDS: ALBUTEROL ORAL INH SCH ×2 (16:08→19:17)
[2017-04-18] MEDS: IPRATROPIUM ORAL INH SCH ×2 (16:08→19:17)
[2017-04-18] MEDS: HYDROCODONE/APAP 7.5 MG/325 MG TABLET PO PRN (18:08)
[2017-04-18] MEDS ORDERED: LORazepam 1 MG TABLET PO PRN (20:14)
[2017-04-18] MEDS: ONDANSETRON 4 MG/2 ML INJECTION IVP PRN (23:22)
[2017-04-19] MEDS ORDERED: LORazepam 0.5 MG TABLET PO PRN ×3 (00:38→14:46)
[2017-04-19] MEDS: 1/2 NS with KCL 20mEq 1,000 ML IV SCH ×3 (01:38→23:32)
[2017-04-19] MEDS: PIPERACILLIN/TAZOBACTAM 3.375 GM in NS 100 ML IV SCH ×5 (02:59→23:45)
[2017-04-19] MEDS: IPRATROPIUM ORAL INH SCH ×4 (04:10→20:49)
[2017-04-19] MEDS: ALBUTEROL ORAL INH SCH ×4 (04:10→20:49)
[2017-04-19] MEDS: ALBUTEROL/IPRATROPIUM 2.5mg-0.5mg/3ml NEB AEROSOL PRN (04:10)
[2017-04-19] MEDS: POM ALBUTEROL HFA INHALER 8gm ORAL INH PRN (04:33)
[2017-04-19] MEDS ORDERED: SALINE FLUSH 10ml SYRINGE ONE (07:17)
[2017-04-19] MEDS: ALBUTEROL/IPRATROPIUM 2.5mg-0.5mg/3ml NEB AEROSOL SCH ×3 (07:27→15:26)
--- NOTE | 2017-04-19 08:14 | Echocardiogram ---
DATE OF PROCEDURE April 18, [address] Justice Dumont This is a two-dimensional echo with spectral Doppler, color-flow and M-mode. It was obtained in a patient with abnormal EKG. Left atrial dimension is normal. Left ventricle end-diastolic dimension is normal. Left ventricle wall thickness is normal. LV systolic function is normal with ejection fraction of 55%. Right atrium is normal. Right ventricle is normal. Aortic root dimension is normal. Mitral, aortic, tricuspid, and pulmonary valves are morphologically normal with trace of mitral and trace of tricuspid regurgitation with normal estimated pulmonary artery systolic pressure of 15. There is no pericardial effusion. IMPRESSION 1. Essentially normal echo with trivial mitral and tricuspid regurgitation. MTDD
[2017-04-19] MEDS ORDERED: REGADENOSON 0.4 MG/5 ML INJECTION IVP ONE (08:27)
--- NOTE | 2017-04-19 09:36 | Cardiology Progress Note ---
Subjective Principal diagnosis: abnormal EKG <Мария Curry 04/19/17 09:43> Interval history: Fly is seen in stress test this morning in follow up for abnormal EKG. He is unable to tolerate exercise on treadmill and is given Lexiscan instead. He reports SOA and upper left sided abdominal pain. <Мария Curry 04/19/17 09:43> Exam Vital signs: Temperature 97.6 F 04/21/17 16:33 Pulse Rate 88 04/21/17 16:43 Respiratory Rate 18 04/21/17 16:33 Blood Pressure 126/79 04/21/17 16:33 Pulse Oximetry 96 04/21/17 16:33 <Delroy Person - 04/22/17 14:00> Temperature 97.9 F 04/19/17 07:30 Pulse Rate 87 04/19/17 07:30 Respiratory Rate 18 04/19/17 07:30 Blood Pressure 157/87 H 04/19/17 07:30 Pulse Oximetry 98 04/19/17 07:30 <Мария Curry 04/19/17 09:43> - Constitutional moderate distress, cooperative <Мария Curry 04/19/17 09:43> - Routine HEENT Exam Head: Present: normocephalic <Мария Curry 04/19/17 09:43> ENT: Present: mucous membranes moist <Мария Curry 04/19/17 09:43> - Routine Neck Exam Absent: JVD, carotid bruit <Мария Curry 04/19/17 09:43> - Routine Chest/Breast/Axilla Exam Chest wall: Absent: tenderness <Мария Curry 04/19/17 09:43> - Routine Respiratory Exam Present: CTA bilaterally. Absent: rales, wheezes <Мария Curry 04/19/17 09:43> - Routine Cardiovascular Exam Present: no murmur. Absent: JVD <Мария Curry 04/19/17 09:43> - Routine Abdominal Exam Present: soft, normoactive bowel sounds <Мария Curry 04/19/17 09:43> - Routine Extremities Exam Present: no edema <Мария Curry 04/19/17 09:43> - Routine Skin Exam Present: intact, dry, warm <Мария Curry - 04/19/17 09:43> - Routine Neurological Exam Present: alert, oriented X3 <Мария Curry - 04/19/17 09:43> - Routine Psychiatric Exam Present: normal affect, normal thought process <Мария Curry - 04/19/17 09: 43> - Additional findings Additional findings: Laboratory Results - last 24 hr 04/19/17 04/19/17 04:26 04:26 WBC 11.4 H RBC 5.19 Hgb 14.7 Hct 45.9 D MCV 88.4 MCH 28.3 MCHC 32.0 RDW Std Deviation 43.8 Plt Count 293 MPV 10.4 Immature Gran % (Auto) 0.3 Neut % (Auto) 67.9 H Lymph % (Auto) 18.9 L [place] % (Auto) 8.5 Eos % (Auto) 3.9 Baso % (Auto) 0.5 Neut # 7.7 Lymph # 2.1 [place] # 1.0 H Eos # 0.4 Baso # 0.1 Abs Immat Gran (auto) 0.03 Turbidity < 20 Sodium 144 Potassium 3.9 D Chloride 103 Carbon Dioxide 30 Anion Gap 11 BUN 8.0 L Creatinine 0.9 GFR Calculation 88 BUN/Creatinine Ratio 9 Glucose 83 Calculated Osmolality 274 Calcium 9.4 Phosphorus 2.7 Icterus Index < 2 Albumin 4.1 Specimen Hemolysis < 15 Acetaminophen/Hydrocodone Bitart ([place] 7.5/325) 1 tab PO Q4H PRN PRN Reason: Pain Last Admin: 04/18/17 18:08 Dose: 1 tab Albuterol Sulfate (Ventolin Hfa) 2 puff ORAL INH Q4HR PRN Last Admin: 04/19/17 04:33 Dose: 2 puff Albuterol/Ipratropium (Duoneb) 3 ml AEROSOL Q4HR PRN PRN Reason: Shortness of air/wheezing Last Admin: 04/17/17 20:37 Dose: 3 ml Albuterol/Ipratropium (Duoneb) 3 ml AEROSOL RTQID ADRIENNE Last Admin: 04/19/17 07:27 Dose: 3 ml Albuterol/Ipratropium (Combivent Respimat Inhaler) 1 puff ORAL INH RTQID ADRIENNE Last Admin: 04/19/17 04:10 Dose: 1 puff Hydromorphone HCl (Dilaudid) 0.5 mg IVP Q3H PRN PRN Reason: Pain Last Admin: 04/18/17 22:00 Dose: 0.5 mg Piperacillin Sod/Tazobactam (Sod 3.375 gm/ Sodium Chloride) 100 mls @ 200 mls/ hr IV Q6H [facility] Last Infusion: 04/19/17 03:29 Dose: Infused Potassium Chloride/Sodium Chloride (1/2 Ns With Kcl 20meq) 1,000 mls @ 100 mls/ hr IV .Q10H [facility] Last Admin: 04/19/17 01:38 Dose: 100 mls/hr Lorazepam (Ativan) 0.5 mg PO TID PRN Ondansetron HCl (Zofran) 4 mg IVP Q6H PRN PRN Reason: Nausea Last Admin: 04/18/17 23:22 Dose: 4 mg Pantoprazole Sodium (Protonix Iv) 40 mg IVP DAILY [facility] Last Admin: 04/18/17 08:54 Dose: 40 mg Polyethylene Glycol (Miralax) 17 gm PO DAILY PRN Last Admin: 04/18/17 15:44 Dose: 17 gm Potassium Chloride (K-Dur) 20 meq PO BIDWM [facility] Last Admin: 04/18/17 17:00 Dose: 20 meq <Мария Curry - 04/19/17 09:43> Assessment and Plan - Assessment and Plan (1) Abnormal EKG Status: Acute (2) Renal lithiasis Status: Acute (3) Essential (primary) hypertension Status: Acute <Delroy Person - 04/22/17 14:00> (1) Abnormal EKG Status: Acute Stress test today negative for ischemia. Cleared to follow through with procedure as planned tomorrow. (2) Renal lithiasis Status: Acute (3) Essential (primary) hypertension Status: Acute increase Amlodipine to 5mg daily <Мария Curry - 04/20/17 13:12> - Attestation Attestation Narrative: 04/22/17 14:00 Recommendation After examining the patient I agree with the above assessment. I am involved in the formulation of the patient's plan of care. <Delroy Person - 04/22/17 14:00> Sepsis Assessment - Evaluation Sepsis screening result: No Definite Risk <Мария Curry - 04/19/17 09:43> Hospital Course Summary Disclaimer: The visit summary below is not to be considered part of the above Progress Note. <Delroy Person - 04/22/17 14:00> The visit summary below is not to be considered part of the above Progress Note. <Мария Curry - 04/19/17 09:43> Hospital Course: 04/17/17 Admission Assessment Abdominal pain Uncertain etiology. Need to exclude acute diverticulitis. Possible kidney stone. With patient's marijuana use, pain could be secondary to chronic use. Leukocytosis Hematuria - exclude kidney stones Constipation Hypokalemia (POA) - also present at prior facility. COPD GERD Hx Kidney stones - follows with Dr JORGE. Hx pulmonary nodule Hx marijuana use Plan Inpatient admission to [facility] [place] for further evaluation and treatment of his abdominal pain and leukocytosis. Anticipate greater than 2 midnights of care needed. Patient not meeting sepsis criterial, nor do I see evidence of acute surgical abdomen. Start Zosyn 3.375 grams IV q 6 hours for antimicrobial coverage of GI pathogens. Obtain CT scan of ab/pelvis with and without IV contrast to help rule of kidney stone and diverticulitis. IVF of 1/2NS with 20mEq KCL at 125cc/hr for hydration. Clear liquid diet. Zofran prn nausea. Dilaudid prn pain. Neb Treatments of DuoNeb QID and q4 prn along with budesonide 0.5mg BID in light of his COPD. IV Protonix daily secondary to GERD. SCD for DVT prevention. Home medications are in process of being reconciled. Monitor lab. Full code as per his requests. Care to return to Dr Handy at time of discharge from [facility] [place]. 04/18/17 Cardiology Abnormal EKG is SR, ? IWMI. Has positive family history of heart disease. Plan treadmill stress test in the morning at 0800. Renal lithiasis: 8mm Left ureteral stone, with procedure planned for Tuesday. Thank you for allowing us to participate in this patient's care 04/19/17 Cardiology Stress test today negative for ischemia. Cleared to follow through with procedure as planned tomorrow. Increase Amlodipine to 5mg daily <AntoinetteМария suarez - 04/20/17 13:12>
[2017-04-19] MEDS: HYDROCODONE/APAP 7.5 MG/325 MG TABLET PO PRN ×2 (10:53→23:32)
[2017-04-19] MEDS: PANTOPRAZOLE 40 MG INJECTION IVP SCH (11:35)
--- NOTE | 2017-04-19 12:04 | Progress Note ---
<Monet Gunter - Last Filed: 04/19/17 11:57> Subjective: Fly is seen today in follow up for his left abdominal pain secondary to his ureteral stone and hydronephrosis. He is seen while resting in bed and appears very anxious. He complains of LLQ abdominal pain identical to his previous pain and currently rates it at 4/10. He denies any other concerns including no chest pain, shortness of breath, nausea, vomiting or diarrhea. He denies having much of an appetite but admits that he has not been able to eat or drink anything this morning as he was NPO for a stress test. He reports that the stress test was "stressful". Review of the medical records and discussion with nursing indicates that he was unable to complete the treadmill stress test due to dyspnea and abdominal pain so he underwent a Lexiscan with results pending. He discusses at length his fears and anxiety regarding his upcoming stone retrieval and is particularly concerned about the REMOVAL of the Shen catheter following the procedure. His questions were answered and reassurance was provided. He also continues to struggle with the recent loss of his dog and states that now he is all alone. Review of his medical records and nursing notes indicates that his WBC is stable at 11.4 and resolution of his hypokalemia is noted with current potassium at 3.9. Objective Vital signs: Temperature 98.1 F 04/19/17 11:32 Pulse Rate 84 04/19/17 11:32 Respiratory Rate 16 04/19/17 11:32 Blood Pressure 155/96 H 04/19/17 11:32 Pulse Oximetry 96 04/19/17 11:32 Height/Weight/BMI: Height 6 ft 1 in Weight 188 lb Body Mass Index 25.3 - Constitutional Present: mild distress, well nourished, well developed, cooperative Comments: very anxious - Routine HEENT Exam Head: Present: normocephalic, atraumatic Eye: Present: PERRL. Absent: conjunctival icterus ENT: Present: mucous membranes dry - Routine Respiratory Exam Present: CTA bilaterally. Absent: stridor, wheezes, crackles - Routine Cardiovascular Exam Present: RRR, S1, S2 - Routine Abdominal Exam Present: soft, normoactive bowel sounds - Routine Extremities Exam Present: no edema, full ROM, pulses intact - Routine Back/Spine/Pelvis Exam Back/Spine: Present: full ROM - Routine Musculoskeletal Exam Musculoskeletal: Present: normal strength, moving extremities well - Routine Skin Exam Present: intact, dry, warm Comments: afebrile - Routine Neurological Exam Present: alert, oriented X3, moving all extremities, hearing grossly intact, normal speech - Routine Lymphatic Exam Lymphatic: Absent: lymphedema - Routine Psychiatric Exam Present: cooperative, anxious Results - Labs CBC & Chem 7: 04/19/17 04:26 04/19/17 04:26 Microbiology Results: Microbiology 04/17/17 15:26 Peripheral/Iv Start Blood Culture - Preliminary No Growth After 1 Day 04/17/17 15:18 Peripheral/Iv Start Blood Culture - Preliminary No Growth After 1 Day Assessment and Plan (1) Abdominal pain Current visit: Yes Status: Acute (2) Leukocytosis Current visit: Yes Status: Acute DVT Prophylaxis: SCD's GI Prophylaxis: Protonix Resuscitation Status: Full Code Assessment and Plan: 04/19: [place]. Assessment Abdominal pain, acute. Left 8mm ureteral stone with hydronephosis, acute. Leukocytosis, acute. Hematuria, acute. Constipation, chronic. Hypokalemia (POA) - also present at prior facility, chronic. COPD, chronic. GERD, chronic. Hx Kidney stones - follows with Dr JORGE. Hx pulmonary nodule, chronic. Hx marijuana use, chronic. Plan CT abdomen/pelvis with and without contrast on 04/17 revealed mild to moderate left hydronephrosis with left perinephric stranding secondary to 8mm stone in left distal ureter. Dr. Cristina was consulted and recommended lithotripsy with ureteral stone retrieval and possible stent placement on 04/20. Continue Zosyn 3.375 grams IV q 6 hours for antimicrobial coverage of GI/ pathogens. WBC persistent at 11.4. Continue clear liquid diet. Anticipate NPO after midnight in preparation for upcoming urology procedure tomorrow. Will clarify with Dr. Cristina. Continue 1/ 2NS with KCl at 100cc/hr for hydration in light of limited oral intake. Monitor closely for signs of fluid overload. Hypokalemia noted on admission at 3.1. Resolved today with potassium at 3.9. Continue to monitor electrolytes and renal function closely. Repeat BMP and CBC in AM. Abnormal EKG noted on admission. Patient seen and evaluated by Dr. Person. Attempted treadmill stress test this AM but was unable to complete in light of dyspnea and abdominal pain. Lexiscan was completed with results pending. Echocardiogram on 04/18 revealed normal exam with trivial mitral and tricuspid regurg. Continue to monitor closely on telemetry. Blood pressure noted to be elevated with systolic in 140's-150's. Elevated blood pressure may be related to increased anxiety pertaining to upcoming procedure. Will continue to monitor closely. Initiate Norvasc 2.5mg daily for additional control and monitor closely for signs of hypotension. Zofran prn nausea. Dilaudid prn pain and norco. Ativan PRN anxiety. Continue neb treatments of DuoNeb QID and q4 prn along with budesonide 0.5mg BID in light of his COPD. Encourage incentive spirometry for pulmonary toileting. IV Protonix daily secondary to GERD and for GI protection. SCD for DVT prevention. - Time spent with patient 25 - 35 minutes Sepsis Assessment - Evaluation Sepsis screening result: No Definite Risk Hospital Course Summary Disclaimer: The visit summary below is not to be considered part of the above Progress Note. Hospital Course: 04/17/17 Admission Assessment Abdominal pain Uncertain etiology. Need to exclude acute diverticulitis. Possible kidney stone. With patient's marijuana use, pain could be secondary to chronic use. Leukocytosis Hematuria - exclude kidney stones Constipation Hypokalemia (POA) - also present at prior facility. COPD GERD Hx Kidney stones - follows with Dr JORGE. Hx pulmonary nodule Hx marijuana use Plan [place]patient admission [place] [facility] [place] evaluation and treatment of his abdominal pain and leukocytosis. Anticipate greater than 2 midnights of care needed. Patient not meeting sepsis criterial, nor do I see evidence of acute surgical abdomen. Start Zosyn 3.375 grams IV q 6 hours for antimicrobial coverage of GI pathogens. Obtain CT scan of ab/pelvis with and without IV contrast to help rule of kidney stone and diverticulitis. IVF of 1/2NS with 20mEq KCL at 125cc/hr for hydration. Clear liquid diet. Zofran prn nausea. Dilaudid prn pain. Neb Treatments of DuoNeb QID and q4 prn along with budesonide 0.5mg BID in light of his COPD. IV Protonix daily secondary to GERD. SCD for DVT prevention. Home medications are in process of being reconciled. Monitor lab. Full code as per his requests. Care to return to Dr Handy at time of discharge from [facility]. 04/18/17 Cardiology Abnormal EKG is SR, ? IWMI. Has positive family history of heart disease. Plan treadmill stress test in the morning at 0800. Renal lithiasis: 8mm Left ureteral stone, with procedure planned for Tuesday. Thank you for allowing us to participate in this patient's care 04/19/17: CT abdomen/pelvis with and without contrast on 04/17 revealed mild to moderate left hydronephrosis with left perinephric stranding secondary to 8mm stone in left distal ureter. Dr. Cristina was consulted and recommended lithotripsy with ureteral stone retrieval and possible stent placement on 04/20. Continue Zosyn 3.375 grams IV q 6 hours for antimicrobial coverage of GI/ pathogens. WBC persistent at 11.4. Continue clear liquid diet. Anticipate NPO after midnight in preparation for upcoming urology procedure tomorrow. Will clarify with Dr. Cristina. Continue 1/ 2NS with KCl at 100cc/hr for hydration in light of limited oral intake. Monitor closely for signs of fluid overload. Hypokalemia noted on admission at 3.1. Resolved today with potassium at 3.9. Continue to monitor electrolytes and renal function closely. Repeat BMP and CBC in AM. Abnormal EKG noted on admission. Patient seen and evaluated by Dr. Person. Attempted treadmill stress test this AM but was unable to complete in light of dyspnea and abdominal pain. Lexiscan was completed with results pending. Echocardiogram on 04/18 revealed normal exam with trivial mitral and tricuspid regurg. Continue to monitor closely on telemetry. Blood pressure noted to be elevated with systolic in 140's-150's. Elevated blood pressure may be related to increased anxiety pertaining to upcoming procedure. Will continue to monitor closely. Initiate Norvasc 2.5mg daily for additional control and monitor closely for signs of hypotension. Zofran prn nausea. Dilaudid prn pain and norco. Ativan PRN anxiety. Continue neb treatments of DuoNeb QID and q4 prn along with budesonide 0.5mg BID in light of his COPD. Encourage incentive spirometry for pulmonary toileting. IV Protonix daily secondary to GERD and for GI protection. SCD for DVT prevention. <Glenny Arguello - Last Filed: 04/19/17 20:12> Objective Vital signs: Temperature 99.5 F 04/19/17 19:37 Pulse Rate 86 04/19/17 19:37 Respiratory Rate 18 04/19/17 19:37 Blood Pressure 158/100 H 04/19/17 19:37 Pulse Oximetry 95 04/19/17 19:37 Height/Weight/BMI: Height 1.85 m Weight 88.7 kg Body Mass Index 25.3 Results - Labs CBC & Chem 7: 04/19/17 04:26 04/19/17 04:26 Microbiology Results: Microbiology 04/17/17 15:26 Peripheral/Iv Start Blood Culture - Preliminary No Growth After 2 Days 04/17/17 15:18 Peripheral/Iv Start Blood Culture - Preliminary No Growth After 2 Days Assessment and Plan (1) Abdominal pain Current visit: Yes Status: Acute (2) Leukocytosis Current visit: Yes Status: Acute Assessment and Plan: 04/19/2017-I reviewed this chart, the patient history, and the CLINICAL PROJECT COORDINATOR's/PA's documented findings as above. We discussed and formulated the assessment and plan as above with the additions below.-Jos The patient complains of intermittent left low back pain. He states he was hungry and ate a hamburger today and then that caused him to have more abdominal discomfort. He is not vomiting. He is still anxious and nervous about his procedure tomorrow. He is also still quite sad about the of his dog recently. On exam he is alert and oriented and in no acute distress. Chest is clear to auscultation. Cardiovascular reveals a regular rate and rhythm. Abdomen is soft and nontender with positive bowel sounds. Extremities are free of edema. White count is stable at 11.4. Hemoglobin is normal. Neutrophils are 67%. Immature grans are normal at 0.3% Basic metabolic profile is essentially normal. Potassium has improved to 3.9. Patient underwent stress test today with Dr. Person and verbal report from him is that it was normal and he could proceed with procedure tomorrow. Overall, the patient is stable. Discussed with Dr. Cristina and he plans for L URS + LL + Stent tomorrow. We'll add K pad for low back pain. Check CBC and basic metabolic profile tomorrow. Low-dose Norvasc added for hypertension/elevated blood pressure. Hospital Course Summary Disclaimer: The visit summary below is not to be considered part of the above Progress Note.
[2017-04-19] MEDS ORDERED: AMLODIPINE 2.5 MG TABLET PO SCH (12:30)
[2017-04-19] MEDS ORDERED: AMLODIPINE 5 MG TABLET PO SCH (14:13)
[2017-04-19] MEDS: ONDANSETRON 4 MG/2 ML INJECTION IVP PRN (14:14)
[2017-04-19] MEDS ORDERED: METOCLOPRAMIDE 10mg/2ml INJECTION IVP PRN (14:46)
[2017-04-19] MEDS: HYDROMORPHONE 2 MG/ML INJECTION IVP PRN (15:54)
--- NOTE | 2017-04-19 20:20 | Cardiology Report ---
DATE 04/19/2017 INDICATION Shortness of breath and preop clearance. PROCEDURES Lexiscan Myoview. Initially we attempted to proceed with treadmill Myoview. However, the patient walked only 1 minute and stopped due to shortness of breath. IMPRESSION 1. Baseline EKG is normal. 2. He tolerated Lexiscan without difficulty. 3. Hemodynamic response to Lexiscan was appropriate. 4. 12.4 mCi of Myoview was given for rest images and 33.8 mCi for stress images. 5. There were no ischemic EKG changes. 6. There were no arrhythmias. 7. Nuclear perfusion images revealed normal coronary perfusion with no scar or ischemia. 8. Quantitative ejection fraction is 55%. MTDD
[2017-04-20] MEDS: HYDROMORPHONE 2 MG/ML INJECTION IVP PRN ×3 (02:29→15:54)
[2017-04-20] MEDS: ALBUTEROL/IPRATROPIUM 2.5mg-0.5mg/3ml NEB AEROSOL SCH ×5 (04:42→21:46)
[2017-04-20] MEDS: PIPERACILLIN/TAZOBACTAM 3.375 GM in NS 100 ML IV SCH ×4 (05:40→23:56)
[2017-04-20] MEDS: IPRATROPIUM ORAL INH SCH ×5 (05:45→21:46)
[2017-04-20] MEDS: ALBUTEROL ORAL INH SCH ×5 (05:45→21:46)
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
[2017-04-20] MEDS ORDERED: INHALER ASSIST DEVICE (Optichamber) MC ONE (08:49)
[2017-04-20] MEDS: PANTOPRAZOLE 40 MG INJECTION IVP SCH (09:15)
--- NOTE | 2017-04-20 09:52 | Anesthesia Preoperative Report ---
Anesthesia Preoperative Record - Date and Time Date: 04/20/17 Preoperative Diagnosis: Abdominal pain Proposed Procedure: Left Stone Ureteral Stone Laser and stent NPO Since Date: 04/19/17 NPO Since Time: 20:00 Allergies/Adverse Reactions: Allergies Allergy/AdvReac Type Severity Reaction Status Date / Time ciprofloxacin Allergy Mild ITCH Verified 04/17/17 16:57 ciprofloxacin HCl Allergy Mild ITCH Uncoded 04/17/17 16:57 - Vital Signs Vital Signs: Temperature 98.1 F 04/20/17 09:45 Pulse Rate 90 04/20/17 09:47 Respiratory Rate 20 04/20/17 09:45 Blood Pressure 149/97 H 04/20/17 09:45 Pulse Oximetry 96 04/20/17 09:45 Height and Weight: Height 6 ft 1 in Weight 87.2 kg Body Mass Index 25.3 - Medications Inpatient Medications: Current Medications Acetaminophen/Hydrocodone Bitart ([place] 7.5/325) 1 tab PO Q4H PRN PRN Reason: Pain Last Admin: 04/19/17 23:32 Dose: 1 tab Albuterol Sulfate (Ventolin Hfa) 2 puff ORAL INH Q4HR PRN Last Admin: 04/19/17 04:33 Dose: 2 puff Albuterol/Ipratropium (Duoneb) 3 ml AEROSOL Q4HR PRN PRN Reason: Shortness of air/wheezing Last Admin: 04/17/17 20:37 Dose: 3 ml Albuterol/Ipratropium (Duoneb) 3 ml AEROSOL RTQID ADRIENNE Last Admin: 04/20/17 08:22 Dose: 3 ml Albuterol/Ipratropium (Combivent Respimat Inhaler) 1 puff ORAL INH RTQID ADRIENNE Last Admin: 04/20/17 08:46 Dose: Not Given Amlodipine Besylate (Norvasc) 5 mg PO DAILY ADRIENNE Last Admin: 04/20/17 09:16 Dose: 5 mg Budesonide/Formoterol Fumarate (Symbicort Inhaler) 2 puff ORAL INH RTBID ADRIENNE Hydromorphone HCl (Dilaudid) 0.5 mg IVP Q3H PRN PRN Reason: Pain Last Admin: 04/20/17 08:08 Dose: 0.5 mg Piperacillin Sod/Tazobactam (Sod 3.375 gm/ Sodium Chloride) 100 mls @ 200 mls/ hr IV Q6H ADRIENNE Last Infusion: 04/20/17 06:10 Dose: Infused Potassium Chloride/Sodium Chloride (1/2 Ns With Kcl 20meq) 1,000 mls @ 100 mls/ hr IV .Q10H ADRIENNE Last Infusion: 04/20/17 06:10 Dose: 100 mls/hr Lorazepam (Ativan) 0.5 mg PO Q4H PRN Lorazepam (Ativan Inj) 0.5 mg IVP Q6H PRN Last Admin: 04/20/17 09:16 Dose: 0.5 mg Metoclopramide HCl (Reglan) 10 mg IVP Q6H PRN Last Admin: 04/19/17 15:23 Dose: 10 mg Ondansetron HCl (Zofran) 4 mg IVP Q6H PRN PRN Reason: Nausea Last Admin: 04/19/17 14:14 Dose: 4 mg Pantoprazole Sodium (Protonix Iv) 40 mg IVP DAILY ADRIENNE Last Admin: 04/20/17 09:15 Dose: 40 mg Polyethylene Glycol (Miralax) 17 gm PO DAILY PRN Last Admin: 04/18/17 15:44 Dose: 17 gm Home Medications: Home Medications Medication Instructions Recorded Confirmed Type Ipatropium/Albuterol [Combivent 2 puff INH Q4H PRN #0 05/18/10 04/17/17 History Respimat Inhaler] hydroCHLOROthiazide 25 mg PO DAILY #0 05/18/10 04/17/17 History [Hydrochlorothiazide] Chlorzoxazone [Parafon Forte] 500 mg PO BID #0 03/19/13 History Celecoxib 100 mg PO DAILY #0 10/10/14 04/17/17 History Dicyclomine HCl 10 mg PO Q6H PRN #0 10/10/14 04/17/17 History Montelukast Sodium 10 mg PO HS #0 tab 10/10/14 04/17/17 History Tramadol HCl 50 mg PO Q6H PRN #0 tab 10/10/14 04/17/17 History Albuterol Neb (0.083%) [Proventil 2.5 mg AEROSOL QID PRN 04/17/17 04/17/17 History Neb (0.083%)] Albuterol Sulfate [Proair Hfa] 1 - 2 puff INH Q4H PRN 04/17/17 04/17/17 History Budesonide/Formoterol 80/4.5 2 puff INH BID 04/17/17 04/17/17 History [Symbicort Inhaler] Diclofenac [Voltaren] 1 applic TOP BID 04/17/17 04/17/17 History Docusate Sodium [Colace] 1 cap PO BID 04/17/17 04/17/17 History Fluticasone HFA [Flovent Hfa 220 2 puff INH BID PRN 04/17/17 04/17/17 History mcg] Hydrocodone/APAP 5/325 [[place] 1 tab PO Q4H PRN 04/17/17 04/17/17 History 5/325] Ibuprofen 800 mg PO Q8H PRN 04/17/17 04/17/17 History Milk of Magnesia [Mom] 30 ml PO DAILY PRN 04/17/17 04/17/17 History Pantoprazole Tab [Protonix Tab] 1 tab PO ACB 04/17/17 04/17/17 History Simvastatin 20 mg PO HS 04/17/17 04/17/17 History Is Patient on Beta Suni?: No - Medical History Respiratory: Reports: Chronic Obstructive Pulmonary Disease (COPD) DENIES: Asthma, Bronchitis, Dyspnea, Orthopnea, Pulmonary Embolism, Pneumonia , Upper Respiratory Infection, Pulmonary Edema, Sleep Apnea, Tuberculosis, Other Cardiovascular: Reports: Hypertension DENIES: Abnormal EKG, Angina, Arrhythmia, Congestive Heart Failure, Coronary Artery Disease, Heart Murmur, Hypotension, High Cholesterol, Myocardial Infarction, Rheumatic Fever, Valvular Heart Disease, Other Gastrointestional: DENIES: Obstructive Bowel, Hepatitis, Cirrhosis, Nausea or Vomiting Present, Gastroesophageal Reflux Disease, Gastrointestinal Bleeding, Hiatal Hernia, Ulcer , Morbid Obesity, Other Neuro/Musculoskeletal: Denies: HX.MS.OSAR, Back Problems, Cerebrovascular Accident, Depression, Headaches, Loss of Consciousness, Muscle Weakness, Neuromuscular Disorder, Paralysis, Paresthesia, Syncope, Seizures, Other Renal/Endocrine: DENIES: Diabetes Mellitus Type 1, Diabetes Mellitus Type 2, Renal Failure, Dialysis, Thyroid Disease, Weight Loss, Weight Gain, Other Other History: DENIES: Anesthesia Reactions, Now, Blood Transfusions, Chemotherapy , Cancer, Hemophilia, Malignant Hyperthermia, Sickle Cell Disease, Other - Surgical History Cardiac Surgeries/Treatments: DENIES: Cardiac Catheterization Anesthesia Reactions: None Hx Family Anesthesia Reaction: No History of Motion Sickness: No - Social History Smoking Status: Former smoker (quit 4 years) Hx Chewing Tobacco Use: No Second Hand Exposure: No Substance Use Type: marijuana Substance Last Used: days (ago) Alcohol Intake Frequency: does not drink - Pertinent Findings Laboratory: CBC and BMP 04/20/17 04:08 04/20/17 04:07 BMP 04/20/17 04:07 Sodium 143 Potassium 3.8 Chloride 107 Carbon Dioxide 28 BUN 7.0 L Creatinine 0.9 Glucose 85 Calcium 9.3 EKG: Sinus Rhythm - Physical Exam Respiratory Exam: Present: lungs clear, bilateral breath sounds equal Cardiovascular Exam: Present: regular rate and rhythm, no murmur - Airway Assessment Mallampati Score: I TMD: 3 Fingerbreadths Teeth: poor dentation (several loose teeth) Overall Assessment: no airway concerns - ASA ASA Score: 3 - Plan Anesthesia: General Inhalation Gases - Discussion Discussion: Discussed risks/options/alternatives of anesthesia and questions answered. Patient consents. Nursing pain assessment noted. Attestation Statement: Prior to the delivery of any anesthetic medication, I examined the patient, developed the plan, obtained the patient's consent and discussed the risk and benefits of the procedure with the patient/guardian. - Additional Information Seen by Anesthesia: Yes
[2017-04-20] MEDS ORDERED: LIDOCAINE 2% JELLY (Urojet) 20ml MM ONE ×2 (10:00→11:14)
[2017-04-20] MEDS ORDERED: MIDAZOLAM 2mg/2ml INJECTION IVP ONE (10:03)
[2017-04-20] MEDS: NS 1,000 ML IV SCH (10:04)
[2017-04-20] MEDS ORDERED: FentaNYL 100 MCG/2 ML INJECTION ONE ×2 (10:05→10:27)
[2017-04-20] MEDS ORDERED: PROPOFOL 20 ML ONE ×2 (10:05→10:59)
[2017-04-20] MEDS ORDERED: SEVOFLURANE 250ml LIQUID IH ONE (10:07)
[2017-04-20] MEDS ORDERED: IOHEXOL 300mg/ml 50ml INJECTION OPSITE ONE (11:14)
--- NOTE | 2017-04-20 11:59 | Anesthesia Postoperative Note ---
- Date and Time Date: 04/20/17 Time: 11:59 - Status Patient Participated in Evaluation: Patient Participated in Person Vital Signs: Temperature 96.8 F 04/20/17 11:40 Pulse Rate 86 04/20/17 11:40 Respiratory Rate 16 04/20/17 11:40 Blood Pressure 149/97 H 04/20/17 09:45 Pulse Oximetry 99 04/20/17 11:40 Respiratory Function: Airway Patent, Regular Respirations Cardiovascular Function: Regular Pulse EKG: Sinus Rhythm Mental Status: Alert and Oriented Pain Intensity: 0 Hydration: IV Infusing Complications During Recover: None Apparent - Follow-Up Instructions Instructions: Per Surgeon
[2017-04-20] MEDS: BUDESONIDE ORAL INH SCH ×2 (12:29→21:47)
[2017-04-20] MEDS: FORMOTEROL ORAL INH SCH ×2 (12:29→21:47)
[2017-04-20] MEDS: 1/2 NS with KCL 20mEq 1,000 ML IV SCH ×2 (12:46→15:30)
[2017-04-20] MEDS ORDERED: AMLODIPINE 5 MG TABLET PO ONE (13:20)
--- NOTE | 2017-04-20 14:31 | Remote Fluorsocopy Report ---
Indication: LEFT STENT INSERTION/RETROGRADE PROCEDURE: RF retrograde pyelogram LT: Encounter: Initial Comparison: CT abdomen dated April 17, 2017 Findings: Seven fluoroscopic spot images are submitted for interpretation. Images show a ureteroscope projecting over the left renal pelvis area followed by injection of contrast into the left renal collecting system. Scope is then seen projecting over an upper pole calyx followed by placement of a left-sided double-J stent. Impression: Fluoroscopy as above. Fluoroscopy time is 74.5 seconds. Fluoroscopy dose is 2290 mRad. .
--- NOTE | 2017-04-20 15:12 | Cardiology Progress Note ---
Subjective Principal diagnosis: abnormal EKG <Мария Curry 04/20/17 15:12> Interval history: Fly is seen in follow up for abnormal EKG. He is in his room following cystoscopy procedure for renal lithiasis. He c/o bloody urine. He denies chest pain or dyspnea. <Мария Curry 04/21/17 14:53> Exam Vital signs: Temperature 97.6 F 04/21/17 16:33 Pulse Rate 88 04/21/17 16:43 Respiratory Rate 18 04/21/17 16:33 Blood Pressure 126/79 04/21/17 16:33 Pulse Oximetry 96 04/21/17 16:33 <Delroy Person - 04/22/17 14:09> Temperature 96.8 F 04/20/17 13:25 Pulse Rate 68 04/20/17 14:10 Respiratory Rate 18 04/20/17 13:25 Blood Pressure 149/99 H 04/20/17 14:10 Pulse Oximetry 97 04/20/17 14:10 <Мария Curry 04/20/17 15:12> - Constitutional no acute distress, cooperative <Мария Curry 04/20/17 15:12> - Routine HEENT Exam Head: Present: normocephalic <Мария Curry 04/20/17 15:12> ENT: Present: mucous membranes moist <Мария Curry 04/20/17 15:12> - Routine Neck Exam Absent: JVD, carotid bruit <Мария Curry 04/20/17 15:12> - Routine Chest/Breast/Axilla Exam Chest wall: Absent: tenderness <Мария Curry 04/20/17 15:12> - Routine Respiratory Exam Present: CTA bilaterally. Absent: rales, wheezes, crackles <Мария Curry 04/20/17 15:12> - Routine Cardiovascular Exam Present: RRR, no murmur. Absent: JVD <Мария Curry 04/20/17 15:12> - Routine Abdominal Exam Present: soft, normoactive bowel sounds <Мария Curry 04/20/17 15:12> - Routine Extremities Exam Present: no edema <Мария Curry 04/20/17 15:12> - Routine Skin Exam Present: intact, dry, warm <Мария Curry - 04/20/17 15:12> - Routine Neurological Exam Present: alert, oriented X3 <Мария Curry - 04/20/17 15:12> - Routine Psychiatric Exam Present: normal affect, normal thought process <Мария Curry - 04/20/17 15: 12> - Additional findings Additional findings: Laboratory Results - last 24 hr 04/20/17 04/20/17 04:07 04:08 WBC 10.0 RBC 4.73 Hgb 13.3 L Hct 41.8 MCV 88.4 MCH 28.1 MCHC 31.8 RDW Std Deviation 43.3 Plt Count 257 MPV 10.5 Immature Gran % (Auto) 0.2 Neut % (Auto) 67.1 H Lymph % (Auto) 18.6 L [place] % (Auto) 10.2 H Eos % (Auto) 3.3 Baso % (Auto) 0.6 Neut # 6.7 Lymph # 1.9 [place] # 1.0 H Eos # 0.3 Baso # 0.1 Abs Immat Gran (auto) 0.02 Turbidity < 20 Sodium 143 Potassium 3.8 Chloride 107 Carbon Dioxide 28 Anion Gap 8 BUN 7.0 L Creatinine 0.9 GFR Calculation 88 BUN/Creatinine Ratio 8 Glucose 85 Calculated Osmolality 272 Calcium 9.3 Icterus Index < 2 Specimen Hemolysis < 15 Acetaminophen/Hydrocodone Bitart ([place] 7.5/325) 1 tab PO Q4H PRN PRN Reason: Pain Last Admin: 04/19/17 23:32 Dose: 1 tab Albuterol Sulfate (Ventolin Hfa) 2 puff ORAL INH Q4HR PRN Last Admin: 04/19/17 04:33 Dose: 2 puff Albuterol/Ipratropium (Duoneb) 3 ml AEROSOL Q4HR PRN PRN Reason: Shortness of air/wheezing Last Admin: 04/17/17 20:37 Dose: 3 ml Albuterol/Ipratropium (Duoneb) 3 ml AEROSOL RTQID ADRIENNE Last Admin: 04/20/17 10:45 Dose: Not Given Albuterol/Ipratropium (Combivent Respimat Inhaler) 1 puff ORAL INH RTQID ADRIENNE Last Admin: 04/20/17 13:09 Dose: Not Given Amlodipine Besylate (Norvasc) 10 mg PO DAILY [facility] Budesonide/Formoterol Fumarate (Symbicort Inhaler) 2 puff ORAL INH RTBID [facility] Last Admin: 04/20/17 12:29 Dose: Not Given Hydromorphone HCl (Dilaudid) 0.5 mg IVP Q3H PRN PRN Reason: Pain Last Admin: 04/20/17 08:08 Dose: 0.5 mg Piperacillin Sod/Tazobactam (Sod 3.375 gm/ Sodium Chloride) 100 mls @ 200 mls/ hr IV Q6H [facility] Last Infusion: 04/20/17 06:10 Dose: Infused Potassium Chloride/Sodium Chloride (1/2 Ns With Kcl 20meq) 1,000 mls @ 100 mls/ hr IV .Q10H [facility] Last Admin: 04/20/17 12:46 Dose: Not Given Sodium Chloride (Normal Saline) 1,000 mls @ 75 mls/hr IV .[id number] [facility] Last Infusion: 04/20/17 12:34 Dose: Infused Lorazepam (Ativan) 0.5 mg PO Q4H PRN Lorazepam (Ativan Inj) 0.5 mg IVP Q6H PRN Last Admin: 04/20/17 09:16 Dose: 0.5 mg Metoclopramide HCl (Reglan) 10 mg IVP Q6H PRN Last Admin: 04/19/17 15:23 Dose: 10 mg Ondansetron HCl (Zofran) 4 mg IVP Q6H PRN PRN Reason: Nausea Last Admin: 04/19/17 14:14 Dose: 4 mg Pantoprazole Sodium (Protonix Iv) 40 mg IVP DAILY [facility] Last Admin: 04/20/17 09:15 Dose: 40 mg Polyethylene Glycol (Miralax) 17 gm PO DAILY PRN Last Admin: 04/18/17 15:44 Dose: 17 gm DATE OF PROCEDURE 04/20/2017 PREOPERATIVE DIAGNOSES 1. Left nephrolithiasis. 2. Left ureteral stone. POSTOPERATIVE DIAGNOSES 1. Left nephrolithiasis. 2. Left ureteral stone. PROCEDURE PERFORMED 1. Cystoscopy, left retrograde pyelogram. 2. Left ureteroscopy with laser lithotripsy. 3. Stone basketing. 4. Left stent placement. PRIMARY SURGEON Xavier Cristina MD FINDINGS 1. Impacted stone in the left distal ureter. 2. Multiple small nonobstructing stones in the left kidney. RADIOLOGIC FINDINGS Left retrograde pyelogram showed significant left ureteral hydronephrosis. COMPLICATIONS None. DRAINS 6 x 26 double-J stent on a string. INDICATION FOR THE PROCEDURE This is a 57-year-old male who was admitted to [facility] two days ago for severe left flank pain. CT scan was done and showed an 8 mm left distal ureteral stone with significant hydronephrosis. The patient was counseled on his options and elected to proceed to the OR for left ureteroscopy. Of note, patient also had multiple small nonobstructing stones in his left kidney. DESCRIPTION OF THE PROCEDURE The patient was identified in the preoperative holding area. The procedure was explained to him and agreed to proceed. He was taken back to the operating room where he was placed supine on the operating table. General anesthesia was induced. He was then placed in the dorsal lithotomy position. He was then prepped and draped in the usual fashion. At this time a formal time-out was done and all the persons in the room were in agreement. I started the procedure by introducing a rigid cystoscope into the bladder. A 5- Brazilian ureteral catheter was used to intubate the left UO. I then placed a Sensor wire in the left kidney. I then emptied the bladder and removed my cystoscope. I then introduced my rigid ureteroscope alongside the wire in the distal ureter. I was able to pass the rigid ureteroscope into the distal ureter without problem. I identified the stone that was impacted at the level of the iliac vessels. Using a holmium laser fiber, the stone was broken into several small fragments. I then used a Zero Tip basket to remove the stones. Once I cleared all the stones from the distal ureter I removed my rigid ureteroscope. I then placed a ureteral access sheath over the wire and introduced it at the level of the proximal ureter. I then introduced my flexible ureteroscope through the access sheath. The patient had some small fragments in the proximal ureter that I basketed and removed. I then introduced my ureteroscope into the kidney. I inspected every bossman in the left kidney. The patient had some small nonobstructing stones in the mid and lower pole of this kidney. Using a laser I broke those fragments and then I used a Zero Tip basket to remove them from the kidney. Once there were no stone fragments left in the kidney, I shot a retrograde pyelogram through the ureteroscope that showed left hydronephrosis. I then carefully withdrew my ureteroscope and inspected the left ureter completely from the left UPJ to the left UVJ. There were no residual stones left or any significant injuries. I then reintroduced my cystoscope in the bladder. A 6 x 26 double-J stent was placed over the wire and under fluoro guidance advanced to the level of the left kidney. The wire was then removed and I observed a nice curl of the stent in the kidney and in the bladder. The bladder was emptied. The string from the stent was secured to the patient's penis. This concluded the procedure. The patient was awakened from anesthesia and taken back to PACU. DISPOSITION The patient will be transferred back to his room. He can be discharged home today from urology standpoint. He will follow up with me next Tuesday for stent removal. <Мария Curry - 04/21/17 14:53> Assessment and Plan - Assessment and Plan (1) Abnormal EKG Status: Acute (2) Renal lithiasis Status: Acute (3) Essential (primary) hypertension Status: Acute <Delroy Person - 04/22/17 14:09> (1) Abnormal EKG Status: Acute (2) Renal lithiasis Status: Acute S/P Cystoscopy, left retrograde pyelogram, Left ureteroscopy with laser lithotripsy, Stone basketing, Left stent placement. (3) Essential (primary) hypertension Status: Acute increased Amlodipine to 10mg daily, give additional 5mg today. <Мария Curry - 04/21/17 14:50> - Attestation Attestation Narrative: 04/22/17 14:09 Recommendation After examining the patient I agree with the above assessment. I am involved in the formulation of the patient's plan of care. <Delroy Person - 04/22/17 14:09> Sepsis Assessment - Evaluation Sepsis screening result: No Definite Risk <Мария Curry - 04/20/17 15:12> Hospital Course Summary Disclaimer: The visit summary below is not to be considered part of the above Progress Note. <Delroy Person - 04/22/17 14:09> The visit summary below is not to be considered part of the above Progress Note. <Мария Curry - 04/20/17 15:12> Hospital Course: 04/17/17 Admission Assessment Abdominal pain Uncertain etiology. Need to exclude acute diverticulitis. Possible kidney stone. With patient's marijuana use, pain could be secondary to chronic use. Leukocytosis Hematuria - exclude kidney stones Constipation Hypokalemia (POA) - also present at prior facility. COPD GERD Hx Kidney stones - follows with Dr JORGE. Hx pulmonary nodule Hx marijuana use Plan Inpatient admission to [facility] for further evaluation and treatment of his abdominal pain and leukocytosis. Anticipate greater than 2 midnights of care needed. Patient not meeting sepsis criterial, nor do I see evidence of acute surgical abdomen. Start Zosyn 3.375 grams IV q 6 hours for antimicrobial coverage of GI pathogens. Obtain CT scan of ab/pelvis with and without IV contrast to help rule of kidney stone and diverticulitis. IVF of 1/2NS with 20mEq KCL at 125cc/hr for hydration. Clear liquid diet. Zofran prn nausea. Dilaudid prn pain. Neb Treatments of DuoNeb QID and q4 prn along with budesonide 0.5mg BID in light of his COPD. IV Protonix daily secondary to GERD. SCD for DVT prevention. Home medications are in process of being reconciled. Monitor lab. Full code as per his requests. Care to return to Dr Handy at time of discharge from [facility]. 04/18/17 Cardiology Abnormal EKG is SR, ? IWMI. Has positive family history of heart disease. Plan treadmill stress test in the morning at 0800. Renal lithiasis: 8mm Left ureteral stone, with procedure planned for Tuesday. Thank you for allowing us to participate in this patient's care 04/19/17 Cardiology Stress test today negative for ischemia. Cleared to follow through with procedure as planned tomorrow. Increase Amlodipine to 5mg daily 04/20/17 15:14 increased Amlodipine to 10mg daily, give additional 5mg today. <Мария Curry - 04/21/17 14:53>
[2017-04-20] MEDS ORDERED: SIMETHICONE 125 MG CAPSULE PO PRN (16:00)
[2017-04-20] MEDS: HYDROCODONE/APAP 7.5 MG/325 MG TABLET PO PRN (17:44)
[2017-04-20] MEDS: KETOROLAC 15 MG/ML INJECTION IVP SCH ×2 (18:04→21:28)
[2017-04-20] MEDS: TAMSULOSIN 0.4 MG CAPSULE PO SCH ×2 (20:03→21:31)
[2017-04-20] MEDS: POM ALBUTEROL HFA INHALER 8gm ORAL INH PRN (22:02)
[2017-04-21] MEDS: KETOROLAC 15 MG/ML INJECTION IVP SCH ×3 (03:09→15:37)
[2017-04-21] MEDS: 1/2 NS with KCL 20mEq 1,000 ML IV SCH ×2 (03:10→14:13)
[2017-04-21] MEDS: PIPERACILLIN/TAZOBACTAM 3.375 GM in NS 100 ML IV SCH (05:51)
[2017-04-21] MEDS: HYDROCODONE/APAP 7.5 MG/325 MG TABLET PO PRN ×2 (07:19→13:54)
--- NOTE | 2017-04-21 08:06 | Operative Note ---
DATE OF PROCEDURE 04/20/2017 PREOPERATIVE DIAGNOSES 1. Left nephrolithiasis. 2. Left ureteral stone. POSTOPERATIVE DIAGNOSES 1. Left nephrolithiasis. 2. Left ureteral stone. PROCEDURE PERFORMED 1. Cystoscopy, left retrograde pyelogram. 2. Left ureteroscopy with laser lithotripsy. 3. Stone basketing. 4. Left stent placement. PRIMARY SURGEON Xavier Cristina MD FINDINGS 1. Impacted stone in the left distal ureter. 2. Multiple small nonobstructing stones in the left kidney. RADIOLOGIC FINDINGS Left retrograde pyelogram showed significant left ureteral hydronephrosis. COMPLICATIONS None. DRAINS 6 x 26 double-J stent on a string. INDICATION FOR THE PROCEDURE This is a 57-year-old male who was admitted to [facility] two days ago for severe left flank pain. CT scan was done and showed an 8 mm left distal ureteral stone with significant hydronephrosis. The patient was counseled on his options and elected to proceed to the OR for left ureteroscopy. Of note, patient also had multiple small nonobstructing stones in his left kidney. DESCRIPTION OF THE PROCEDURE The patient was identified in the preoperative holding area. The procedure was explained to him and agreed to proceed. He was taken back to the operating room where he was placed supine on the operating table. General anesthesia was induced. He was then placed in the dorsal lithotomy position. He was then prepped and draped in the usual fashion. At this time a formal time-out was done and all the persons in the room were in agreement. I started the procedure by introducing a rigid cystoscope into the bladder. A 5- Amharic ureteral catheter was used to intubate the left UO. I then placed a Sensor wire in the left kidney. I then emptied the bladder and removed my cystoscope. I then introduced my rigid ureteroscope alongside the wire in the distal ureter. I was able to pass the rigid ureteroscope into the distal ureter without problem. I identified the stone that was impacted at the level of the iliac vessels. Using a holmium laser fiber, the stone was broken into several small fragments. I then used a Zero Tip basket to remove the stones. Once I cleared all the stones from the distal ureter I removed my rigid ureteroscope. I then placed a ureteral access sheath over the wire and introduced it at the level of the proximal ureter. I then introduced my flexible ureteroscope through the access sheath. The patient had some small fragments in the proximal ureter that I basketed and removed. I then introduced my ureteroscope into the kidney. I inspected every bossman in the left kidney. The patient had some small nonobstructing stones in the mid and lower pole of this kidney. Using a laser I broke those fragments and then I used a Zero Tip basket to remove them from the kidney. Once there were no stone fragments left in the kidney, I shot a retrograde pyelogram through the ureteroscope that showed left hydronephrosis. I then carefully withdrew my ureteroscope and inspected the left ureter completely from the left UPJ to the left UVJ. There were no residual stones left or any significant injuries. I then reintroduced my cystoscope in the bladder. A 6 x 26 double-J stent was placed over the wire and under fluoro guidance advanced to the level of the left kidney. The wire was then removed and I observed a nice curl of the stent in the kidney and in the bladder. The bladder was emptied. The string from the stent was secured to the patient's penis. This concluded the procedure. The patient was awakened from anesthesia and taken back to PACU. DISPOSITION The patient will be transferred back to his room. He can be discharged home today from urology standpoint. He will follow up with me next Tuesday for stent removal. [id number]
[2017-04-21] MEDS: PANTOPRAZOLE 40 MG INJECTION IVP SCH (08:52)
[2017-04-21] MEDS ORDERED: AMLODIPINE 10 MG TABLET PO SCH (09:00)
[2017-04-21] MEDS ORDERED: SULFAMETHOXAZOLE/TMP 800 MG/160 MG DS TABLET PO SCH (09:00)
[2017-04-21] MEDS: FORMOTEROL ORAL INH SCH (09:07)
[2017-04-21] MEDS: BUDESONIDE ORAL INH SCH (09:07)
[2017-04-21] MEDS: ALBUTEROL/IPRATROPIUM 2.5mg-0.5mg/3ml NEB AEROSOL SCH ×3 (09:48→16:16)
[2017-04-21] MEDS: ONDANSETRON 4 MG/2 ML INJECTION IVP PRN (10:25)
[2017-04-21] MEDS ORDERED: ONDANSETRON ODT 4 MG TABLET PO PRN (10:42)
--- NOTE | 2017-04-21 11:09 | Progress Note ---
Subjective: Fly is seen this morning in follow up. He reports that he attempted eat breakfast however is having significant amount of nausea. Reports continued flank pain that is milk in nature. Denies having chest pain or shortness of breath. BP stable at 136/83. Objective Vital signs: Temperature 97.2 F 04/21/17 07:04 Pulse Rate 74 04/21/17 09:22 Respiratory Rate 12 04/21/17 09:50 Blood Pressure 145/95 H 04/21/17 07:04 Pulse Oximetry 96 04/21/17 09:50 Height/Weight/BMI: Height 1.85 m Weight 86.2 kg Body Mass Index 25.3 - Constitutional Present: no acute distress, well nourished, well developed - Routine HEENT Exam Eye: Present: EOMI ENT: Present: mucous membranes moist, dentition normal - Routine Respiratory Exam Present: CTA bilaterally. Absent: wheezes - Routine Cardiovascular Exam Present: RRR, S1, S2. Absent: murmur - Routine Abdominal Exam Present: soft, normoactive bowel sounds, non distended. Absent: tenderness - Routine Extremities Exam Present: normal capillary refill - Routine Back/Spine/Pelvis Exam Back/Spine: Present: full ROM - Routine Skin Exam Present: intact, dry, warm - Routine Neurological Exam Present: alert, oriented X3, CN II-XII intact - Routine Lymphatic Exam Lymphatic: Absent: adenopathy - Routine Psychiatric Exam Present: normal affect Results - Labs CBC & Chem 7: 04/20/17 04:08 04/21/17 07:38 Microbiology Results: Microbiology 04/17/17 15:26 Peripheral/Iv Start Blood Culture - Preliminary No Growth After 3 Days 04/17/17 15:18 Peripheral/Iv Start Blood Culture - Preliminary No Growth After 3 Days Assessment and Plan (1) Abdominal pain Current visit: Yes Status: Acute (2) Leukocytosis Current visit: Yes Status: Acute Assessment and Plan: 04/21/17 Impression Left 8 mm ureteral stone with hydronephrosis Abdominal pain likely secondary to ureteral stone Left flank pain for 2 days, worse today Leukocytosis-resolved, blood cultures negative 2 days Hematuria Chronic constipation Hypokalemia-resolved Hypertension COPD without exacerbation GERD History pulmonary nodule Anxiety Plan Given IV zofran for treatment of acute nausea would like to change nausea and pain meds to oral agents to see if he tolerates Hopeful for possible discharge later today however, will need to re-evaluate later once nausea is better controlled. He does have a home nebulizer, will plan to discharge him home with nebulizers to use routinely. Will need follow-up with Dr. Cristina Discussed further plan of Dr Arguello Hospital Course Summary Disclaimer: The visit summary below is not to be considered part of the above Progress Note. Hospital Course: 04/17/17 Admission Assessment Abdominal pain Uncertain etiology. Need to exclude acute diverticulitis. Possible kidney stone. With patient's marijuana use, pain could be secondary to chronic use. Leukocytosis Hematuria - exclude kidney stones Constipation Hypokalemia (POA) - also present at prior facility. COPD GERD Hx Kidney stones - follows with Dr JORGE. Hx pulmonary nodule Hx marijuana use Plan Inpatient admission to [facility] for further evaluation and treatment of his abdominal pain and leukocytosis. Anticipate greater than 2 midnights of care needed. Patient not meeting sepsis criterial, nor do I see evidence of acute surgical abdomen. Start Zosyn 3.375 grams IV q 6 hours for antimicrobial coverage of GI pathogens. Obtain CT scan of ab/pelvis with and without IV contrast to help rule of kidney stone and diverticulitis. IVF of 1/2NS with 20mEq KCL at 125cc/hr for hydration. Clear liquid diet. Zofran prn nausea. Dilaudid prn pain. Neb Treatments of DuoNeb QID and q4 prn along with budesonide 0.5mg BID in light of his COPD. IV Protonix daily secondary to GERD. SCD for DVT prevention. Home medications are in process of being reconciled. Monitor lab. Full code as per his requests. Care to return to Dr Handy at time of discharge from [facility]. 04/18/17 Cardiology Abnormal EKG is SR, ? IWMI. Has positive family history of heart disease. Plan treadmill stress test in the morning at 0800. Renal lithiasis: 8mm Left ureteral stone, with procedure planned for Tuesday. Thank you for allowing us to participate in this patient's care 04/19/17 Cardiology Stress test today negative for ischemia. Cleared to follow through with procedure as planned tomorrow. Increase Amlodipine to 5mg daily 04/20/17 15:14 increased Amlodipine to 10mg daily, give additional 5mg today.
[2017-04-21] MEDS: NS 1,000 ML IV SCH (13:19)
[2017-04-21] MEDS: IPRATROPIUM ORAL INH SCH ×3 (14:53→15:03)
[2017-04-21] MEDS: ALBUTEROL ORAL INH SCH ×3 (14:53→15:03)
--- NOTE | 2017-04-21 14:56 | Cardiology Progress Note ---
Subjective Principal diagnosis: abnormal EKG <Мария Curry 04/21/17 14:57> Interval history: Fly is seen in follow up for abnormal EKG. He is 1 day S/P cystoscopy and reports bloody urine but states pain has improved. He denies cardiac complaints. <Мария Curry 04/21/17 14:57> Exam Vital signs: Temperature 97.6 F 04/21/17 16:33 Pulse Rate 88 04/21/17 16:43 Respiratory Rate 18 04/21/17 16:33 Blood Pressure 126/79 04/21/17 16:33 Pulse Oximetry 96 04/21/17 16:33 <Delroy Person - 04/22/17 14:15> Temperature 97.2 F 04/21/17 12:08 Pulse Rate 97 04/21/17 12:08 Respiratory Rate 18 04/21/17 12:08 Blood Pressure 135/79 04/21/17 12:08 Pulse Oximetry 95 04/21/17 12:08 <Мария Curry 04/21/17 14:57> - Constitutional no acute distress, well nourished, well developed, cooperative <Мария Curry 04/21/17 14:57> - Routine HEENT Exam Head: Present: normocephalic <Мария Curry 04/21/17 14:57> ENT: Present: mucous membranes moist <Мария Curry 04/21/17 14:57> - Routine Neck Exam Absent: JVD, carotid bruit <Мария Curry 04/21/17 14:57> - Routine Chest/Breast/Axilla Exam Chest wall: Absent: tenderness <Мария Curry 04/21/17 14:57> Breast: Absent: tenderness <Мария Curry 04/21/17 14:57> - Routine Respiratory Exam Present: CTA bilaterally. Absent: rales, wheezes <Мария Curry 04/21/17 14:57> - Routine Cardiovascular Exam Present: RRR. Absent: no murmur, JVD <Мария Curry 04/21/17 14:57> - Routine Abdominal Exam Present: soft, normoactive bowel sounds <Мария Curry 04/21/17 14:57> - Routine Extremities Exam Present: no edema <Мария Curry - 04/21/17 14:57> - Routine Skin Exam Present: intact, dry, warm <Мария Curry - 04/21/17 14:57> - Routine Neurological Exam Present: alert, oriented X3 <Мария Curry - 04/21/17 14:57> - Routine Psychiatric Exam Present: normal affect, normal thought process <Мария Curry - 04/21/17 14: 57> - Additional findings Additional findings: Laboratory Results - last 24 hr 04/21/17 07:38 Turbidity < 20 Sodium 141 Potassium 3.9 Chloride 105 Carbon Dioxide 26 Anion Gap 10 BUN 8.0 L Creatinine 0.8 GFR Calculation 100 BUN/Creatinine Ratio 10 Glucose 90 Calculated Osmolality 269 Calcium 9.2 Icterus Index < 2 Specimen Hemolysis < 15.0 Acetaminophen/Hydrocodone Bitart ([place] 7.5/325) 1 tab PO Q4H PRN PRN Reason: Pain Last Admin: 04/21/17 13:54 Dose: 1 tab Albuterol Sulfate (Ventolin Hfa) 2 puff ORAL INH Q4HR PRN Last Admin: 04/20/17 22:02 Dose: 2 puff Albuterol/Ipratropium (Duoneb) 3 ml AEROSOL Q4HR PRN PRN Reason: Shortness of air/wheezing Last Admin: 04/17/17 20:37 Dose: 3 ml Albuterol/Ipratropium (Duoneb) 3 ml AEROSOL RTQID ADRIENNE Last Admin: 04/21/17 14:53 Dose: Not Given Albuterol/Ipratropium (Combivent Respimat Inhaler) 1 puff ORAL INH RTQID ADRIENNE Last Admin: 04/21/17 14:53 Dose: Not Given Amlodipine Besylate (Norvasc) 10 mg PO DAILY ADRIENNE Last Admin: 04/21/17 08:57 Dose: 10 mg Budesonide/Formoterol Fumarate (Symbicort Inhaler) 2 puff ORAL INH RTBID ADRIENNE Last Admin: 04/21/17 09:07 Dose: 2 puff Potassium Chloride/Sodium Chloride (1/2 Ns With Kcl 20meq) 1,000 mls @ 100 mls/ hr IV .Q10H ADRIENNE Last Admin: 04/21/17 14:13 Dose: 100 mls/hr Ketorolac Tromethamine (Toradol Inj) 15 mg IVP Q6HR [facility] Stop: 04/21/17 21:01 Last Admin: 04/21/17 08:53 Dose: 15 mg Lorazepam (Ativan) 0.5 mg PO Q4H PRN Last Admin: 04/20/17 21:30 Dose: 0.5 mg Lorazepam (Ativan Inj) 0.5 mg IVP Q6H PRN Last Admin: 04/20/17 16:39 Dose: 0.5 mg Metoclopramide HCl (Reglan) 10 mg IVP Q6H PRN Last Admin: 04/19/17 15:23 Dose: 10 mg Ondansetron HCl (Zofran) 4 mg IVP Q6H PRN PRN Reason: Nausea Last Admin: 04/21/17 10:25 Dose: 4 mg Ondansetron HCl (Zofran Po) 4 mg PO Q6H PRN PRN Reason: Nausea &/or vomiting Oxybutynin Chloride (Ditropan Xl) 10 mg PO DAILY [facility] Last Admin: 04/21/17 08:53 Dose: 10 mg Pantoprazole Sodium (Protonix Iv) 40 mg IVP DAILY [facility] Last Admin: 04/21/17 08:52 Dose: 40 mg Polyethylene Glycol (Miralax) 17 gm PO DAILY PRN Last Admin: 04/18/17 15:44 Dose: 17 gm Simethicone (Phazyme) 125 mg PO Q6HR PRN PRN Reason: Gas Tamsulosin HCl (Flomax) 0.4 mg PO HS [facility] Last Admin: 04/20/17 21:31 Dose: Not Given Trimethoprim/Sulfamethoxazole (Bactrim Ds) 1 tab PO BID [facility] Last Admin: 04/21/17 08:53 Dose: 1 tab <Мария Curry - 04/21/17 14:57> Assessment and Plan - Assessment and Plan (1) Abnormal EKG Status: Acute (2) Renal lithiasis Status: Acute (3) Essential (primary) hypertension Status: Acute <Delroy Person - 04/22/17 14:15> (1) Abnormal EKG Status: Acute (2) Renal lithiasis Status: Acute (3) Essential (primary) hypertension Status: Acute Improved on Amlodipine 10mg. Pain also improved which should help. <Мария Curry - 04/21/17 14:53> - Attestation Attestation Narrative: 04/22/17 14:15 Recommendation After examining the patient I agree with the above assessment. I am involved in the formulation of the patient's plan of care. <Micah Personin - 04/22/17 14:15> Hospital Course Summary Disclaimer: The visit summary below is not to be considered part of the above Progress Note. <Ayah Personsein - 04/22/17 14:15> The visit summary below is not to be considered part of the above Progress Note. <Мария Curry - 04/21/17 14:57> Hospital Course: 04/17/17 Admission Assessment Abdominal pain Uncertain etiology. Need to exclude acute diverticulitis. Possible kidney stone. With patient's marijuana use, pain could be secondary to chronic use. Leukocytosis Hematuria - exclude kidney stones Constipation Hypokalemia (POA) - also present at prior facility. COPD GERD Hx Kidney stones - follows with Dr JORGE. Hx pulmonary nodule Hx marijuana use Plan Inpatient admission to [facility] [place] for further evaluation and treatment of his abdominal pain and leukocytosis. Anticipate greater than 2 midnights of care needed. Patient not meeting sepsis criterial, nor do I see evidence of acute surgical abdomen. Start Zosyn 3.375 grams IV q 6 hours for antimicrobial coverage of GI pathogens. Obtain CT scan of ab/pelvis with and without IV contrast to help rule of kidney stone and diverticulitis. IVF of 1/2NS with 20mEq KCL at 125cc/hr for hydration. Clear liquid diet. Zofran prn nausea. Dilaudid prn pain. Neb Treatments of DuoNeb QID and q4 prn along with budesonide 0.5mg BID in light of his COPD. IV Protonix daily secondary to GERD. SCD for DVT prevention. Home medications are in process of being reconciled. Monitor lab. Full code as per his requests. Care to return to Dr Handy at time of discharge from [facility] [place]. 04/18/17 Cardiology Abnormal EKG is SR, ? IWMI. Has positive family history of heart disease. Plan treadmill stress test in the morning at 0800. Renal lithiasis: 8mm Left ureteral stone, with procedure planned for Tuesday. Thank you for allowing us to participate in this patient's care 04/19/17 Cardiology Stress test today negative for ischemia. Cleared to follow through with procedure as planned tomorrow. Increase Amlodipine to 5mg daily 04/20/17 Cardiology increased Amlodipine to 10mg daily, give additional 5mg today. 04/21/17 Cardiology Pain improved on Amlodipine 10mg. Pain also improved which should help. <Мария Curry - 04/21/17 14:57>
--- NOTE | 2017-04-21 16:24 | Discharge Instructions ---
Discharge Plan - Med Rec/Dispo Referrals/Follow Up: Xavier Cristina MD [Physician] - (Follow up wednesday 04/25- for stent removal) Fly Handy MD [Physician] - (Make follow up apt for 1 week) Ghanshyam Instructions: Lithotripsy (DC), Ureteral Stent Placement (DC) Additional Instructions: FOLLOW UP WITH DR. CRISTINA ON WEDNESDAY 04/25 AT 10:00AM Prescriptions: New Hydrocodone/APAP 7.5/325 [[place] 7.5/325] 1 tab PO Q4HPRN PRN #31 tablet PRN Reason: Pain Sulfamethoxazole/Trimethoprim [Bactrim 400-80 mg Tablet] 1 each PO BID #10 tab Oxybutynin XL [Ditropan Xl] 10 mg PO DAILY #7 tab Sulfamethox/Tmp [Bactrim Ds] 1 tab PO BID tablet Tamsulosin HCl [Flomax] 0.4 mg PO DAILY #10 cap.er.24h Albuterol/Ipratropium [Duoneb] 3 ml AEROSOL RTQID #1 box Amlodipine [Norvasc] 10 mg PO DAILY #30 tab Ondansetron Odt [Zofran Po] 4 mg PO Q6H PRN #15 tab PRN Reason: Nausea &/Or Vomiting Tamsulosin [Flomax] 0.4 mg PO HS capsule Continue Ipatropium/Albuterol [Combivent Respimat Inhaler] 2 puff INH Q4H PRN #0 PRN Reason: Shortness Of Air/Wheezing Montelukast Sodium 10 mg PO HS #0 tab Dicyclomine HCl 10 mg PO Q6H PRN #0 PRN Reason: Spasms Celecoxib 100 mg PO DAILY #0 Pantoprazole Tab [Protonix Tab] 1 tab PO ACB Ibuprofen 800 mg PO Q8H PRN PRN Reason: Pain Docusate Sodium [Colace] 1 cap PO BID Diclofenac [Voltaren] 1 applic TOP BID Budesonide/Formoterol 80/4.5 [Symbicort Inhaler] 2 puff INH BID Albuterol Sulfate [Proair Hfa] 1 - 2 puff INH Q4H PRN PRN Reason: Shortness Of Air/Wheezing Simvastatin 20 mg PO HS Chlorzoxazone [Parafon Forte] 500 mg PO BID #0 Fluticasone HFA [Flovent Hfa 220 mcg] 2 puff INH BID PRN PRN Reason: Shortness Of Air Discontinued Milk of Magnesia [Mom] 30 ml PO DAILY PRN PRN Reason: Constipation Albuterol Neb (0.083%) [Proventil Neb (0.083%)] 2.5 mg AEROSOL QID PRN PRN Reason: Shortness Of Air/Wheezing hydroCHLOROthiazide [Hydrochlorothiazide] 25 mg PO DAILY #0 Tramadol HCl 50 mg PO Q6H PRN #0 tab PRN Reason: PRN ORDERS No Action Hydrocodone/APAP 5/325 [[place] 5/325] 1 tab PO Q4H PRN PRN Reason: Pain Discharge Instructions/Outpatient Orders: Final Provider Discharge Instructions Location: Determined By Patient - Disposition 01 Discharged Home, Self-Care
[2017-04-21 16:34] VITALS: BP 126/79; RESP 18; TEMP 97.6; O2SAT 96
[2017-04-21 17:06] VITALS: PULSE 88
--- NOTE | 2017-04-21 22:08 | Discharge Summary ---
Discharge Information Date of admission: 04/17/17 14:58 Attending Physician: Glenny Arguello MD Primary care physician: Santos Mclean MD Consults: 04/18/17 08:50 Physician Consult [CONS] Routine Consulting Provider: Xavier Tran Reason For Exam: ureteral stone Ordering Provider has Notified Quality Control Representative: Yes 04/18/17 09:09 Physician Consult [CONS] Routine Consulting Provider: Delroy Person Reason For Exam: abnormal EKG Ordering Provider has Notified Quality Control Representative: Yes - Discharge Diagnosis (1) Abdominal pain Status: Acute Discharge Diagnosis: Left 8 mm ureteral stone with hydronephrosis Abdominal pain likely secondary to ureteral stone Left flank pain Leukocytosis-resolved, blood cultures negative Hematuria Chronic constipation Hypokalemia-resolved Hypertension COPD without exacerbation GERD History pulmonary nodule Anxiety (2) Leukocytosis Status: Acute - Procedures Procedures: PREOPERATIVE DIAGNOSES 1. Left nephrolithiasis. 2. Left ureteral stone. POSTOPERATIVE DIAGNOSES 1. Left nephrolithiasis. 2. Left ureteral stone. PROCEDURE PERFORMED 1. Cystoscopy, left retrograde pyelogram. 2. Left ureteroscopy with laser lithotripsy. 3. Stone basketing. 4. Left stent placement. PRIMARY SURGEON Xavier Tran MD FINDINGS 1. Impacted stone in the left distal ureter. 2. Multiple small nonobstructing stones in the left kidney. RADIOLOGIC FINDINGS Left retrograde pyelogram showed significant left ureteral hydronephrosis. COMPLICATIONS None. DRAINS 6 x 26 double-J stent on a string. INDICATION FOR THE PROCEDURE This is a 57-year-old male who was admitted to [facility] two days ago for severe left flank pain. CT scan was done and showed an 8 mm left distal ureteral stone with significant hydronephrosis. The patient was counseled on his options and elected to proceed to the OR for left ureteroscopy. Of note, patient also had multiple small nonobstructing stones in his left kidney. DESCRIPTION OF THE PROCEDURE The patient was identified in the preoperative holding area. The procedure was explained to him and agreed to proceed. He was taken back to the operating room where he was placed supine on the operating table. General anesthesia was induced. He was then placed in the dorsal lithotomy position. He was then prepped and draped in the usual fashion. At this time a formal time-out was done and all the persons in the room were in agreement. I started the procedure by introducing a rigid cystoscope into the bladder. A 5- Kiswahili ureteral catheter was used to intubate the left UO. I then placed a Sensor wire in the left kidney. I then emptied the bladder and removed my cystoscope. I then introduced my rigid ureteroscope alongside the wire in the distal ureter. I was able to pass the rigid ureteroscope into the distal ureter without problem. I identified the stone that was impacted at the level of the iliac vessels. Using a holmium laser fiber, the stone was broken into several small fragments. I then used a Zero Tip basket to remove the stones. Once I cleared all the stones from the distal ureter I removed my rigid ureteroscope. I then placed a ureteral access sheath over the wire and introduced it at the level of the proximal ureter. I then introduced my flexible ureteroscope through the access sheath. The patient had some small fragments in the proximal ureter that I basketed and removed. I then introduced my ureteroscope into the kidney. I inspected every bossman in the left kidney. The patient had some small nonobstructing stones in the mid and lower pole of this kidney. Using a laser I broke those fragments and then I used a Zero Tip basket to remove them from the kidney. Once there were no stone fragments left in the kidney, I shot a retrograde pyelogram through the ureteroscope that showed left hydronephrosis. I then carefully withdrew my ureteroscope and inspected the left ureter completely from the left UPJ to the left UVJ. There were no residual stones left or any significant injuries. I then reintroduced my cystoscope in the bladder. A 6 x 26 double-J stent was placed over the wire and under fluoro guidance advanced to the level of the left kidney. The wire was then removed and I observed a nice curl of the stent in the kidney and in the bladder. The bladder was emptied. The string from the stent was secured to the patient's penis. This concluded the procedure. The patient was awakened from anesthesia and taken back to PACU. DISPOSITION The patient will be transferred back to his room. He can be discharged home today from urology standpoint. He will follow up with me next Tuesday for stent removal. - Laboratory Labs: 04/20/17 04:08 04/21/17 07:38 White count 12.9 on admission and 10.0 on discharge Vitamin B-12 320 60 calcitonin normal at less than 0.05 Potassium was 3.1 on admission and is 3.9 on discharge - Microbiology Microbiology 04/17/17 15:26 Peripheral/Iv Start Blood Culture - Preliminary No Growth After 4 Days 04/17/17 15:18 Peripheral/Iv Start Blood Culture - Preliminary No Growth After 4 Days History of Present Illness HPI: 57 y/o male [place] direct [place] [facility] secondary to continued ab pain and leukocytosis. Patient report onset of ab pain (LLQ) on Thursday 04/12. Crampy, bloating sensation, worse with positional changes. Nausea , but no spontaneous vomiting - would drink water and then stick finger down throat to vomit so he could get relief. No stool output. Not passing much flatus. Use old [place] and Methadone he had at home to help his pain, but this only provided temporary relief. Would get relief in pain from sitting in a warm tub. Oral drive decreased; not hungry and only eating small amounts of soups/ liquids. His dog also became very ill and lethargic-when took dog into vet, his dog needed to be put down. This has been very traumatic for patient. Was seen in local ED yesterday. WBC elevated to 13.2. Blood in urine. Placed in OBS and stared on fluid, Bactrim and pain medications. Pain continued overnight. WBC with increase this am to 16.3. Not able to do CT there this weekend and transfer [place] [facility] [place] further care and evaluation. Objective Vital signs: Temperature 97.6 F 04/21/17 16:33 Pulse Rate 88 04/21/17 16:43 Respiratory Rate 18 04/21/17 16:33 Blood Pressure 126/79 04/21/17 16:33 Pulse Oximetry 96 04/21/17 16:33 Height/Weight/BMI: Height 1.85 m Weight 86.2 kg Body Mass Index 25.3 Hospital Course This is a general summary of the patient's hospital course. For more details refer to the complete medical record. Hospital course: The patient was hospitalized 04/17/2017 through 04/21/2017. This is a brief summary of his hospital stay. On the day of discharge the patient is alert and in no acute distress. He is eating and drinking well. Pain is better controlled. Hematuria has decreased. On exam he is alert and oriented 3. Chest is clear to auscultation. Cardiovascular reveals a regular rate and rhythm. Abdomen is soft and nontender. The patient was admitted 04/17/2017 with abdominal pain of uncertain etiology. His pain was in the left lower quadrant and there was concern for possible diverticulitis. Mild elevated white count and was started on Zosyn. CT abdomen revealed an 8 mm obstructing left ureteral stone. Dr. Tran was consulted. The patient was also having atypical chest pain. Dr. Person was consulted. Patient had a mildly abnormal EKG with positive family history of heart disease. The patient underwent a stress test with cardiology on 04/19/2017 which was fortunately negative. He was cleared for surgery on 04/20/2017. Patient underwent surgery on 04/20/2017 as reported above with Dr. Tran. Postoperatively, the patient had hematuria and bladder spasms. He was started on Ditropan which did seem to help. Dr. Tran recommended Bactrim DS for 10 days, Flomax 0.4 mg daily for 10 days, and [place] 7.5 as needed for pain. The patient had hypokalemia on admission, likely secondary to his hydrochlorothiazide. Hydrochlorothiazide was discontinued. He was started on Norvasc 10 mg daily and blood pressure has been better controlled. The patient had significant anxiety during his hospital stay. He also has COPD and uses his inhalers frequently and it is uncertain if this is in part due to anxiety. The patient may benefit from psychiatric evaluation for his anxiety and may also benefit from pulmonology consultation regarding his COPD. The patient is to follow-up next week with Dr. Tran for ureteral stent removal. He is to follow-up next week with Dr. Handy regarding hypertension, COPD and anxiety. Greater than 30 minutes of time was spent on dismissal day. Discharge Plan - Med Rec/Dispo Referrals/Follow Up: Xavier Tran MD [Physician] - (Follow up wednesday 04/25- for stent removal) Fly Handy MD [Physician] - (Make follow up apt for 1 week) Ghanshyam Instructions: Lithotripsy (DC), Ureteral Stent Placement (DC) Additional Instructions: FOLLOW UP WITH DR. TRAN ON WEDNESDAY 04/25 AT 10:00AM Prescriptions: New Hydrocodone/APAP 7.5/325 [[place] 7.5/325] 1 tab PO Q4HPRN PRN #31 tablet PRN Reason: Pain Sulfamethoxazole/Trimethoprim [Bactrim 400-80 mg Tablet] 1 each PO BID #10 tab Oxybutynin XL [Ditropan Xl] 10 mg PO DAILY #7 tab Sulfamethox/Tmp [Bactrim Ds] 1 tab PO BID tablet Tamsulosin HCl [Flomax] 0.4 mg PO DAILY #10 cap.er.24h Albuterol/Ipratropium [Duoneb] 3 ml AEROSOL RTQID #1 box Amlodipine [Norvasc] 10 mg PO DAILY #30 tab Ondansetron Odt [Zofran Po] 4 mg PO Q6H PRN #15 tab PRN Reason: Nausea &/Or Vomiting Tamsulosin [Flomax] 0.4 mg PO HS capsule Continue Ipatropium/Albuterol [Combivent Respimat Inhaler] 2 puff INH Q4H PRN #0 PRN Reason: Shortness Of Air/Wheezing Montelukast Sodium 10 mg PO HS #0 tab Dicyclomine HCl 10 mg PO Q6H PRN #0 PRN Reason: Spasms Celecoxib 100 mg PO DAILY #0 Pantoprazole Tab [Protonix Tab] 1 tab PO ACB Ibuprofen 800 mg PO Q8H PRN PRN Reason: Pain Docusate Sodium [Colace] 1 cap PO BID Diclofenac [Voltaren] 1 applic TOP BID Budesonide/Formoterol 80/4.5 [Symbicort Inhaler] 2 puff INH BID Albuterol Sulfate [Proair Hfa] 1 - 2 puff INH Q4H PRN PRN Reason: Shortness Of Air/Wheezing Simvastatin 20 mg PO HS Chlorzoxazone [Parafon Forte] 500 mg PO BID #0 Fluticasone HFA [Flovent Hfa 220 mcg] 2 puff INH BID PRN PRN Reason: Shortness Of Air Discontinued Milk of Magnesia [Mom] 30 ml PO DAILY PRN PRN Reason: Constipation Albuterol Neb (0.083%) [Proventil Neb (0.083%)] 2.5 mg AEROSOL QID PRN PRN Reason: Shortness Of Air/Wheezing hydroCHLOROthiazide [Hydrochlorothiazide] 25 mg PO DAILY #0 Tramadol HCl 50 mg PO Q6H PRN #0 tab PRN Reason: PRN ORDERS No Action Hydrocodone/APAP 5/325 [[place] 5/325] 1 tab PO Q4H PRN PRN Reason: Pain Discharge Instructions/Outpatient Orders: Final Provider Discharge Instructions Location: Determined By Patient - Disposition 01 Discharged Home, Self-Care
== END 2017-04-21 18:30 | disposition home or self-care (01) | DRG 669 ==
LOC: SRG → OBSVTOIN 14:58
PROVIDERS: ADMIT Hospitalist; ATTEND Internal Medicine